=== PATIENT | male | born 1945 | race Hispanic/Latino ===

== ENCOUNTER → 2017-11-14 | Outpatient (CLI) | payer MEDICARE ==
--- NOTE | 2017-11-15 08:30 | Diagnostic Imaging Report ---
Exam: Lumbar spine MRI without IV contrast History: Lumbar radiculopathy and spinal canal stenosis. Pain radiates to right hip and foot Comparison studies: Lumbar spine MRI 12/11/2012 Technique: Sagittal and axial T2 , sagittal T1 and IR, axial spin density oblique. Intravenous contrast: None Findings: Number of lumbar vertebral bodies: 5. Alignment: Straight lumbar curvature with focal dextro curvature centered at L4 with mild right lateral translation of L4 and L5. Soft tissues: No T2 hyperintense inflammatory changes. Paraspinal muscles: No signal abnormalities. Well-preserved. No atrophic changes Lower thoracic cord: Normal in signal and morphology. The tip of the conus is at L1-L2. Cauda equina: No masses. No arachnoiditis. Cauda equina nerve root redundancy related to severe degenerative canal stenosis at L3-L4 as described below. Vertebrae: No compression fractures, infection or neoplasm. Moderate reactive degenerative edema at the right L4-L5 endplates due to curvature. Severe degenerative endplate changes on the left at L3-L4 due to curvature with only minimal endplate edema which has improved since the previous exam. Degenerative changes: Loss of T2 disc signal at all levels T9 through L5. L1-L2: Mild loss of disc height. Disc bulge asymmetric to the right with mild bilateral foraminal stenosis. No significant canal stenosis L2-L3: Mild loss of disc height. Minimal retrolisthesis of L2 on L3 with associated uncovered disc/disc bulge and mild facet arthrosis with mild canal stenosis, severe left foraminal stenosis mild to moderate foraminal stenosis. L3-L4: Moderate loss of disc height, greater on the left due to curvature. Disc osteophyte complex, thickened ligamentum flavum and mild facet arthrosis with severe canal stenosis, severe left foraminal stenosis and moderate right foraminal stenosis. L4-L5: Disc bulge asymmetric to the right, central disc extrusion which extends to the right subarticular zone, thickened ligamentum flavum and facet arthrosis with moderate canal stenosis, severe right and moderate left foraminal stenosis. Disc extrusion which has which is with slight inferior migration along the right subarticular ventral epidural space compresses the right L5 nerve root. There is L5-S1: Mild facet arthrosis with mild bilateral foraminal stenosis. No significant canal stenosis. IMPRESSION: 1. Degenerative changes have progressed since 12/11/2012. 2. Multilevel disc degeneration, worse at L3-L4 and at L4-L5 with associated moderate degenerative endplate changes and moderate endplate edema on the right at L4-L5 due to dextrocurvature centered at L4. 3. Degenerative canal stenosis; severe at L3-L4, moderate L4-L5 and mild at L2-L3. Canal stenosis at L3-L4 and at L4-L5 have progressed since 2013 4. New L4-L5 disc extrusion compresses the right L5 nerve root. 5. Not significantly change varying degrees of moderate to severe foraminal stenosis from L2 to L5. Signed by: Dr. Jaun Lott M.D. on 11/15/2017 8:27 AM
== END ==
LOC: MRI 13:28
PROVIDERS: ATTEND Psychiatry & Neurology Neurology
DX: M54.16 Radiculopathy, lumbar region (principal); M48.062 Spinal stenosis, lumbar region with neurogenic claudication; M47.816 Spondylosis without myelopathy or radiculopathy, lumbar region
CPT/HCPCS: 72148

== ENCOUNTER → 2020-09-01 | Day surgery (SDC) | payer MEDICARE ==
[2020-08-30 10:21] LABS: BASOPHILS % 0.3 % (0.0-1.0); HEMATOCRIT 45.5 % (38.2-49.6); HEMOGLOBIN 15.2 g/dL (14.0-18.0); LYMPHOCYTES # (AUTO) 0.8 (1.0-3.2); LYMPHOCYTES % 11.1 % (18.0-39.1); MEAN CORPUSCULAR HEMOGLOBIN 29.3 pg (28-32); MEAN CORPUSCULAR HGB CONC 33.4 g/dL (31-35); MEAN CORPUSCULAR VOLUME 87.7 fL (81-99); MONOCYTES # (AUTO) 0.5 (0.2-0.8); MONOCYTES % 7.8 % (4.4-11.3); NEUTROPHILS # (AUTO) 5.6 (2.1-6.9); NEUTROPHILS % 80.4 % (38.7-80.0); PLATELET COUNT 233 x10e3/uL (140-360); RED BLOOD COUNT 5.19 x10e6/uL (4.3-5.7)
[2020-08-30 10:46] LABS: ANION GAP 14.2 mmol/L (8-16); BLOOD UREA NITROGEN 12 mg/dL (7-26); BUN/CREATININE RATIO 15 (6-25); CALCIUM 8.8 mg/dL (8.4-10.2); CARBON DIOXIDE 27 mmol/L (22-29); CHLORIDE 101 mmol/L (98-107); CREATININE, SERUM 0.78 mg/dL (0.72-1.25); EST GLOMERULAR FILTRATION RATE > 60 ML/MIN (60-); GLUCOSE 91 mg/dL (74-118); POTASSIUM 4.2 mmol/L (3.5-5.1); SODIUM 138 mmol/L (136-145)
[~2020-09-01] MED LIST: AZILECT1 MG PO; BUPIVACAINE 0.25%/EPI 30ML SDV INJ ONE; CARBIDOPA-LEVO1 EAC4 PO; COMTAN200 MG PO; CYMBALTA30 MG PO; DEXAMETHASONE SOD PHOS INJ 4 MG/ML VIAL ONE; EPHEDRINE SULFATE INJ 50 MG/ML VIAL ONE; FENTANYL CITRATE/PF 100MCG/2 ML INJ ONE; GLYCOPYRROLATE INJ 0.2 MG/ML VIAL ONE; LIDOCAINE HCL 2% JELLY 5 ML TUBE ONE; LIDOCAINE HCL 2% LOCAL INJ 5 ML SDV VIAL INJ ONE; NEOSTIGMINE 1 MG/ML 10ML VIAL ONE; ONDANSETRON HCL INJ 2MG/ML 2ML 2 MG/ML VIAL ONE; PROPOFOL IV EMULSION 10 MG/ML 20 ML VIAL ONE; ROCURONIUM BROMIDE 10 MG/ML 5ML VIAL IV ONE; ROPINIROLE HC0.25 MG PO; SEVOFLURANE INHAL SOLN 250 ML PEN BTL ONE
[2020-09-01 13:25] VITALS: BP 163/97
== END | disposition home or self-care (01) ==
LOC: OR 10:00
PROVIDERS: ATTEND Surgery
DX: K43.6 Other and unspecified ventral hernia with obstruction, without gangrene (principal); G20 Parkinson's disease; Z01.810 Encounter for preprocedural cardiovascular examination; Z01.812 Encounter for preprocedural laboratory examination; Z01.818 Encounter for other preprocedural examination; Z20.828 Contact with and (suspected) exposure to other viral communicable diseases
CPT/HCPCS: 36415; 49561; 49568; 71046; 80048; 85025; 88302; 93005; C1781; J1100; J2001 ×2; J2405; J2704; J2710; U0002

== ENCOUNTER 2020-10-31 19:21 | Inpatient (IN) | payer MEDICARE ==
[~2020-10-31] VITALS: Ht 180.3 cm; Wt 88.0 kg
[~2020-10-31 19:21] MED LIST changes: -BUPIVACAINE 0.25%/EPI 30ML SDV INJ ONE; -DEXAMETHASONE SOD PHOS INJ 4 MG/ML VIAL ONE; -EPHEDRINE SULFATE INJ 50 MG/ML VIAL ONE; -FENTANYL CITRATE/PF 100MCG/2 ML INJ ONE; -GLYCOPYRROLATE INJ 0.2 MG/ML VIAL ONE; -LIDOCAINE HCL 2% JELLY 5 ML TUBE ONE; -LIDOCAINE HCL 2% LOCAL INJ 5 ML SDV VIAL INJ ONE; -NEOSTIGMINE 1 MG/ML 10ML VIAL ONE; -ONDANSETRON HCL INJ 2MG/ML 2ML 2 MG/ML VIAL ONE; -PROPOFOL IV EMULSION 10 MG/ML 20 ML VIAL ONE; -ROCURONIUM BROMIDE 10 MG/ML 5ML VIAL IV ONE; -SEVOFLURANE INHAL SOLN 250 ML PEN BTL ONE
[2020-10-31 20:54] LABS: BASOPHILS % 0.5 % (0.0-1.0); EOSINOPHILS # (AUTO) 0.1 (0.0-0.4); EOSINOPHILS % 1.1 % (0.0-6.0); HEMATOCRIT 35.9 % (38.2-49.6); HEMOGLOBIN 11.5 g/dL (14.0-18.0); LYMPHOCYTES % 17.5 % (18.0-39.1); MEAN CORPUSCULAR HEMOGLOBIN 28.5 pg (28-32); MEAN CORPUSCULAR VOLUME 89.1 fL (81-99); MONOCYTES # (AUTO) 0.6 (0.2-0.8); MONOCYTES % 10.4 % (4.4-11.3); NEUTROPHILS # (AUTO) 3.8 (2.1-6.9); NEUTROPHILS % 70.1 % (38.7-80.0); PLATELET COUNT 212 x10e3/uL (140-360); RED BLOOD COUNT 4.03 x10e6/uL (4.3-5.7); RED CELL DISTRIBUTION WIDTH 13.9 % (11.7-14.4)
[2020-10-31 21:00] LABS: INR 0.91; PROTHROMBIN TIME 12.8 seconds (11.9-14.5)
[2020-10-31 21:01] LABS: PARTIAL THROMBOPLASTIN TIME 39.8 seconds (23.8-35.5)
[2020-10-31 21:10] LABS: ALBUMIN 3.7 g/dL (3.5-5.0); ALBUMIN/GLOBULIN RATIO 1.2 (0.8-2.0); ANION GAP 14.2 mmol/L (8-16); CALCIUM 8.8 mg/dL (8.4-10.2); CREATININE, SERUM 1.21 mg/dL (0.72-1.25); POTASSIUM 4.2 mmol/L (3.5-5.1)
[2020-10-31 23:28] LABS: CLARITY,URINE CLEAR (CLEAR); COLOR,URINE YELLOW (YELLOW); KETONES,URINE NEGATIVE (NEGATIVE); LEUKOCYTE ESTERASE ,URINE SMALL (NEGATIVE); NITRITE,URINE NEGATIVE (NEGATIVE); PROTEIN,URINE DIPSTICK NEGATIVE (NEGATIVE); URINE UROBILINOGEN 0.2 mg/dL (0.2 - 1)
[2020-10-31 23:37] LABS: BACTERIA,URINE FEW /HPF; EPITHELIAL CELLS,URINE FEW /LPF; RBC,URINE 0-5 /HPF (0-5)
[2020-11-01] VITALS (9 sets, daily range): BP systolic 136–181; BP diastolic 77–100
[2020-11-01] MEDS ORDERED: HALOPERIDOL LACTATE 5 MG/ML VIAL IM ONE ×2 (00:15)
[2020-11-01] MEDS ORDERED: FUROSEMIDE20 MG PO (02:11)
[2020-11-01] MEDS ORDERED: K-DUR10 MEQ PO (02:11)
[2020-11-01] MEDS ORDERED: ROPINIROLE HCL12 MG PO (02:11)
[2020-11-01] MEDS ORDERED: LOSARTAN POTASS50 MG PO (02:11)
[2020-11-01 05:58] LABS: BASOPHILS % 0.5 % (0.0-1.0); EOSINOPHILS % 0.7 % (0.0-6.0); HEMATOCRIT 33.3 % (38.2-49.6); LYMPHOCYTES # (AUTO) 1.6 (1.0-3.2); LYMPHOCYTES % 26.1 % (18.0-39.1); MEAN CORPUSCULAR HEMOGLOBIN 29.6 pg (28-32); MEAN CORPUSCULAR VOLUME 89.8 fL (81-99); MONOCYTES # (AUTO) 0.7 (0.2-0.8); MONOCYTES % 10.9 % (4.4-11.3); NEUTROPHILS # (AUTO) 3.7 (2.1-6.9); NEUTROPHILS % 61.5 % (38.7-80.0); PLATELET COUNT 186 x10e3/uL (140-360); RED BLOOD COUNT 3.71 x10e6/uL (4.3-5.7); RED CELL DISTRIBUTION WIDTH 13.8 % (11.7-14.4)
[2020-11-01] MEDS ORDERED: HALOPERIDOL LACTATE 5 MG/ML VIAL IV PRN ×2 (06:15→14:30)
[2020-11-01 06:30] LABS: ALBUMIN 3.4 g/dL (3.5-5.0); ALBUMIN/GLOBULIN RATIO 1.1 (0.8-2.0); ALKALINE PHOSPHATASE 101 IU/L (40-150); ANION GAP 13.7 mmol/L (8-16); BLOOD UREA NITROGEN 21 mg/dL (7-26); BUN/CREATININE RATIO 18 (6-25); CALCIUM 8.7 mg/dL (8.4-10.2); CARBON DIOXIDE 27 mmol/L (22-29); CHLORIDE 111 mmol/L (98-107); CREATININE, SERUM 1.17 mg/dL (0.72-1.25); EST GLOMERULAR FILTRATION RATE > 60 ML/MIN (60-); GLUCOSE 89 mg/dL (74-118); POTASSIUM 3.7 mmol/L (3.5-5.1); SODIUM 148 mmol/L (136-145)
[2020-11-01 06:32] LABS: ALANINE AMINOTRANSFERASE < 6 IU/L (0-55)
[2020-11-01] MEDS ORDERED: SODIUM CHLORIDE 0.9% 50ML 50 ML ONE (08:25)
[2020-11-01] MEDS ORDERED: IOPAMIDOL 370 MG/ML 200 ML INFUS..BTL INJ ONE (08:25)
[2020-11-01] MEDS ORDERED: HYDRALAZINE HCL 20 MG/ML VIAL IV PRN (14:45)
[2020-11-01] MEDS: DULOXETINE HCL 30 MG DELAYED RELEASE PO SCH (17:49)
[2020-11-01] MEDS ORDERED: NON-FORMULARY MEDICATION (Entacapone (Comtan) 200 MG) PO SCH (18:00)
[2020-11-01] MEDS: CARBIDOPA/LEVODOPA 25/100 TAB PO SCH (20:38)
[2020-11-01] MEDS: TAMSULOSIN HCL 0.4 MG CAP PO SCH (20:38)
[2020-11-01] MEDS: ROPINIROLE HCL 0.25 MG TAB PO SCH (20:38)
[2020-11-01] MEDS ORDERED: ROPINIROLE HCL 12 MG PO SCH (21:00)
[2020-11-02] VITALS (8 sets, daily range): BP systolic 143–169; BP diastolic 72–94
[2020-11-02 03:42] LABS: CLARITY,URINE TURBID (CLEAR); COLOR,URINE RED (YELLOW); KETONES,URINE NEGATIVE (NEGATIVE); LEUKOCYTE ESTERASE ,URINE NEGATIVE (NEGATIVE); NITRITE,URINE NEGATIVE (NEGATIVE); PROTEIN,URINE DIPSTICK >=300 (NEGATIVE); URINE UROBILINOGEN 0.2 mg/dL (0.2 - 1)
[2020-11-02 03:50] LABS: BACTERIA,URINE FEW /HPF; EPITHELIAL CELLS,URINE FEW /LPF; RBC,URINE >50 /HPF (0-5)
[2020-11-02] MEDS: SODIUM CHLORIDE 0.45% 1,000 ML IV SCH ×3 (03:59→16:10)
[2020-11-02 06:28] LABS: ALBUMIN 3.3 g/dL (3.5-5.0); ALBUMIN/GLOBULIN RATIO 1.1 (0.8-2.0); ALKALINE PHOSPHATASE 109 IU/L (40-150); ANION GAP 16.4 mmol/L (8-16); BLOOD UREA NITROGEN 24 mg/dL (7-26); BUN/CREATININE RATIO 17 (6-25); CALCIUM 8.9 mg/dL (8.4-10.2); CARBON DIOXIDE 27 mmol/L (22-29); CHLORIDE 117 mmol/L (98-107); CREATININE, SERUM 1.45 mg/dL (0.72-1.25); EST GLOMERULAR FILTRATION RATE 47 ML/MIN (60-); GLUCOSE 97 mg/dL (74-118); MAGNESIUM 2.2 MG/DL (1.3-2.1); POTASSIUM 3.4 mmol/L (3.5-5.1); SODIUM 157 mmol/L (136-145)
[2020-11-02 06:51] LABS: ALANINE AMINOTRANSFERASE < 6 IU/L (0-55)
[2020-11-02] MEDS: RASAGILINE 1 MG TAB PO SCH (08:04)
[2020-11-02] MEDS: ROPINIROLE HCL 0.25 MG TAB PO SCH ×3 (08:04→20:17)
[2020-11-02] MEDS: DULOXETINE HCL 30 MG DELAYED RELEASE PO SCH ×2 (08:04→16:10)
[2020-11-02] MEDS: CARBIDOPA/LEVODOPA 25/100 TAB PO SCH ×3 (08:04→20:17)
[2020-11-02] MEDS: HOME MEDICATION--PATIENTS OWN PO SCH ×3 (08:49→20:17)
[2020-11-02] MEDS ORDERED: CEFTRIAXONE SOD 1 GM 50 ML IV SCH (13:30)
[2020-11-02] MEDS ORDERED: POTASSIUM CHLORIDE 20 MEQ TAB CR PO ONE (15:00)
[2020-11-02] MEDS: CEFTRIAXONE SOD 1 GM in SODIUM CHLORIDE 0.9% 50ML 50 ML IV SCH (15:25)
[2020-11-02] MEDS: TAMSULOSIN HCL 0.4 MG CAP PO SCH (20:16)
[2020-11-02] MEDS: QUETIAPINE FUMARATE 25 MG TAB PO PRN (20:17)
[2020-11-03] VITALS (8 sets, daily range): BP systolic 144–165; BP diastolic 60–91
[2020-11-03] MEDS: SODIUM CHLORIDE 0.45% 1,000 ML IV SCH ×3 (01:20→16:52)
[2020-11-03 06:04] LABS: BASOPHILS % 0.5 % (0.0-1.0); EOSINOPHILS # (AUTO) 0.3 (0.0-0.4); HEMATOCRIT 36.7 % (38.2-49.6); HEMOGLOBIN 11.6 g/dL (14.0-18.0); LYMPHOCYTES # (AUTO) 1.3 (1.0-3.2); LYMPHOCYTES % 20.2 % (18.0-39.1); MEAN CORPUSCULAR HEMOGLOBIN 28.6 pg (28-32); MEAN CORPUSCULAR HGB CONC 31.6 g/dL (31-35); MEAN CORPUSCULAR VOLUME 90.4 fL (81-99); MONOCYTES # (AUTO) 0.8 (0.2-0.8); MONOCYTES % 12.3 % (4.4-11.3); NEUTROPHILS % 62.7 % (38.7-80.0); PLATELET COUNT 164 x10e3/uL (140-360); RED BLOOD COUNT 4.06 x10e6/uL (4.3-5.7); RED CELL DISTRIBUTION WIDTH 13.6 % (11.7-14.4)
[2020-11-03 06:38] LABS: ANION GAP 14.3 mmol/L (8-16); CALCIUM 8.2 mg/dL (8.4-10.2); CREATININE, SERUM 1.18 mg/dL (0.72-1.25); MAGNESIUM 1.6 MG/DL (1.3-2.1); POTASSIUM 3.3 mmol/L (3.5-5.1)
[2020-11-03] MEDS: ROPINIROLE HCL 0.25 MG TAB PO SCH ×3 (08:44→21:47)
[2020-11-03] MEDS: RASAGILINE 1 MG TAB PO SCH (08:44)
[2020-11-03] MEDS: DULOXETINE HCL 30 MG DELAYED RELEASE PO SCH ×2 (08:44→16:13)
[2020-11-03] MEDS: CARBIDOPA/LEVODOPA 25/100 TAB PO SCH ×3 (08:45→21:47)
[2020-11-03] MEDS: HOME MEDICATION--PATIENTS OWN PO SCH ×3 (08:47→21:00)
[2020-11-03] MEDS: QUETIAPINE FUMARATE 25 MG TAB PO PRN (08:51)
[2020-11-03] MEDS: CEFTRIAXONE SOD 1 GM in SODIUM CHLORIDE 0.9% 50ML 50 ML IV SCH (14:03)
[2020-11-03] MEDS ORDERED: POTASSIUM CHLORIDE 20 MEQ TAB CR PO ONE (15:25)
[2020-11-03] MEDS: QUETIAPINE FUMARATE 25 MG TAB PO SCH (21:47)
[2020-11-03] MEDS: TAMSULOSIN HCL 0.4 MG CAP PO SCH (21:47)
[2020-11-04] VITALS (8 sets, daily range): BP systolic 116–165; BP diastolic 68–97
[2020-11-04] MEDS: SODIUM CHLORIDE 0.45% 1,000 ML IV SCH ×3 (04:07→23:06)
[2020-11-04 05:09] LABS: BASOPHILS % 0.4 % (0.0-1.0); EOSINOPHILS # (AUTO) 0.4 (0.0-0.4); EOSINOPHILS % 5.3 % (0.0-6.0); HEMATOCRIT 36.7 % (38.2-49.6); HEMOGLOBIN 11.9 g/dL (14.0-18.0); LYMPHOCYTES # (AUTO) 1.4 (1.0-3.2); LYMPHOCYTES % 19.1 % (18.0-39.1); MEAN CORPUSCULAR HEMOGLOBIN 28.7 pg (28-32); MEAN CORPUSCULAR HGB CONC 32.4 g/dL (31-35); MEAN CORPUSCULAR VOLUME 88.6 fL (81-99); MONOCYTES # (AUTO) 0.7 (0.2-0.8); MONOCYTES % 10.1 % (4.4-11.3); NEUTROPHILS # (AUTO) 4.8 (2.1-6.9); NEUTROPHILS % 64.8 % (38.7-80.0); PLATELET COUNT 185 x10e3/uL (140-360); RED BLOOD COUNT 4.14 x10e6/uL (4.3-5.7); RED CELL DISTRIBUTION WIDTH 13.4 % (11.7-14.4)
[2020-11-04] MEDS: QUETIAPINE FUMARATE 25 MG TAB PO PRN ×2 (05:15→12:22)
[2020-11-04 05:29] LABS: ANION GAP 14.7 mmol/L (8-16); BLOOD UREA NITROGEN 17 mg/dL (7-26); BUN/CREATININE RATIO 16 (6-25); CALCIUM 8.1 mg/dL (8.4-10.2); CARBON DIOXIDE 27 mmol/L (22-29); CHLORIDE 108 mmol/L (98-107); CREATININE, SERUM 1.08 mg/dL (0.72-1.25); EST GLOMERULAR FILTRATION RATE > 60 ML/MIN (60-); GLUCOSE 101 mg/dL (74-118); MAGNESIUM 1.4 MG/DL (1.3-2.1); POTASSIUM 3.7 mmol/L (3.5-5.1); SODIUM 146 mmol/L (136-145)
[2020-11-04] MEDS: DULOXETINE HCL 30 MG DELAYED RELEASE PO SCH ×2 (09:12→17:24)
[2020-11-04] MEDS: RASAGILINE 1 MG TAB PO SCH (09:12)
[2020-11-04] MEDS: ROPINIROLE HCL 0.25 MG TAB PO SCH ×3 (09:12→20:02)
[2020-11-04] MEDS: HOME MEDICATION--PATIENTS OWN PO SCH ×3 (09:12→20:02)
[2020-11-04] MEDS: CARBIDOPA/LEVODOPA 25/100 TAB PO SCH ×3 (09:12→20:02)
[2020-11-04] MEDS: CEFTRIAXONE SOD 1 GM in SODIUM CHLORIDE 0.9% 50ML 50 ML IV SCH (14:06)
[2020-11-04] MEDS: QUETIAPINE FUMARATE 25 MG TAB PO SCH (20:02)
[2020-11-04] MEDS: TAMSULOSIN HCL 0.4 MG CAP PO SCH (20:02)
[2020-11-05] VITALS (8 sets, daily range): BP systolic 106–146; BP diastolic 59–81
[2020-11-05] MEDS: QUETIAPINE FUMARATE 25 MG TAB PO PRN ×2 (03:54→12:29)
[2020-11-05] MEDS: RASAGILINE 1 MG TAB PO SCH (09:03)
[2020-11-05] MEDS: ROPINIROLE HCL 0.25 MG TAB PO SCH ×3 (09:04→20:20)
[2020-11-05] MEDS: SODIUM CHLORIDE 0.45% 1,000 ML IV SCH ×2 (09:04→20:20)
[2020-11-05] MEDS: CARBIDOPA/LEVODOPA 25/100 TAB PO SCH ×3 (09:04→20:20)
[2020-11-05] MEDS: DULOXETINE HCL 30 MG DELAYED RELEASE PO SCH ×2 (09:04→17:24)
[2020-11-05] MEDS: HOME MEDICATION--PATIENTS OWN PO SCH ×3 (09:04→20:20)
[2020-11-05] MEDS: CEFTRIAXONE SOD 1 GM in SODIUM CHLORIDE 0.9% 50ML 50 ML IV SCH (14:02)
[2020-11-05] MEDS: QUETIAPINE FUMARATE 25 MG TAB PO SCH (20:20)
[2020-11-05] MEDS: TAMSULOSIN HCL 0.4 MG CAP PO SCH (20:20)
[2020-11-06] VITALS (8 sets, daily range): BP systolic 102–133; BP diastolic 54–85
[2020-11-06] MEDS: QUETIAPINE FUMARATE 25 MG TAB PO PRN (02:44)
[2020-11-06] MEDS: SODIUM CHLORIDE 0.45% 1,000 ML IV SCH ×2 (05:13→17:20)
[2020-11-06] MEDS: HOME MEDICATION--PATIENTS OWN PO SCH ×3 (09:00→21:29)
[2020-11-06] MEDS: DULOXETINE HCL 30 MG DELAYED RELEASE PO SCH ×2 (09:27→17:20)
[2020-11-06] MEDS: ROPINIROLE HCL 0.25 MG TAB PO SCH ×3 (09:27→21:29)
[2020-11-06] MEDS: CARBIDOPA/LEVODOPA 25/100 TAB PO SCH ×3 (09:27→21:29)
[2020-11-06] MEDS: RASAGILINE 1 MG TAB PO SCH (09:27)
[2020-11-06] MEDS: CEFTRIAXONE SOD 1 GM in SODIUM CHLORIDE 0.9% 50ML 50 ML IV SCH (14:00)
[2020-11-06] MEDS: QUETIAPINE FUMARATE 25 MG TAB PO SCH (21:29)
[2020-11-06] MEDS: TAMSULOSIN HCL 0.4 MG CAP PO SCH (21:29)
[2020-11-07] VITALS: BP 161/77
[2020-11-07] MEDS: SODIUM CHLORIDE 0.45% 1,000 ML IV SCH (01:58)
[2020-11-07] MEDS: QUETIAPINE FUMARATE 25 MG TAB PO PRN (03:31)
[2020-11-07 04:00] VITALS: BP 119/64
[2020-11-07 08:15] VITALS: BP 114/88
[2020-11-07 08:43] VITALS: BP 114/88
[2020-11-07] MEDS: DULOXETINE HCL 30 MG DELAYED RELEASE PO SCH (09:12)
[2020-11-07] MEDS: RASAGILINE 1 MG TAB PO SCH (09:12)
[2020-11-07] MEDS: ROPINIROLE HCL 0.25 MG TAB PO SCH (09:13)
[2020-11-07] MEDS: CARBIDOPA/LEVODOPA 25/100 TAB PO SCH (09:13)
[2020-11-07 12:27] VITALS: BP 122/98
== END 2020-11-07 13:53 | disposition left against medical advice (07) | DRG 682 ==
LOC: ER 20:25 → ERHOLD 20:49 → MED/SURG2 11-01 00:05
PROVIDERS: ADMIT Internal Medicine; ATTEND Internal Medicine
DX: N17.9 Acute kidney failure, unspecified (principal); G93.41 Metabolic encephalopathy; F02.81 Dementia in other diseases classified elsewhere, unspecified severity, with behavioral disturbance; E87.1 Hypo-osmolality and hyponatremia; G20 Parkinson's disease; R53.81 Other malaise; N13.9 Obstructive and reflux uropathy, unspecified; N40.1 Benign prostatic hyperplasia with lower urinary tract symptoms; R33.8 Other retention of urine; E87.6 Hypokalemia; N13.6 Pyonephrosis; D64.9 Anemia, unspecified; N31.9 Neuromuscular dysfunction of bladder, unspecified
CPT/HCPCS: 36415; 51700; 70551; 71045; 74177; 80048; 80053; 81001; 82550; 82553; 83735; 83880; 84484; 85025; 85610; 85730; 87086; 99251; 99284; J0696; Q9967; U0002

== ENCOUNTER 2020-11-24 15:35 | Inpatient (IN) | payer MEDICARE ==
[~2020-11-24] VITALS: Ht 160 cm; Wt 60.1 kg
[~2020-11-24 15:35] MED LIST changes: +FUROSEMIDE20 MG PO; +K-DUR10 MEQ PO; +LOSARTAN POTASS50 MG PO; +ROPINIROLE HCL12 MG PO
[2020-11-24] MEDS ORDERED: SODIUM CHLORIDE 0.9% 1000ML 1,000 ML IV STA (15:44)
[2020-11-24] MEDS ORDERED: ASPIRIN 81 MG CHEW TAB PO ONE (15:45)
[2020-11-24] MEDS ORDERED: PIPERACILLIN/TAZOBAC 3.375 GM in SODIUM CHLORIDE 0.9% 50ML 50 ML IV ONE (16:00)
[2020-11-24 16:09] LABS: BASOPHILS # (AUTO) 0.2 (0.0-0.1); BASOPHILS % 0.4 % (0.0-1.0); EOSINOPHILS % 0.1 % (0.0-6.0); HEMATOCRIT 29.8 % (38.2-49.6); LYMPHOCYTES # (AUTO) 0.8 (1.0-3.2); LYMPHOCYTES % 2.2 % (18.0-39.1); MEAN CORPUSCULAR HEMOGLOBIN 28.9 pg (28-32); MEAN CORPUSCULAR HGB CONC 33.6 g/dL (31-35); MEAN CORPUSCULAR VOLUME 86.1 fL (81-99); MONOCYTES # (AUTO) 2.4 (0.2-0.8); MONOCYTES % 6.6 % (4.4-11.3); NEUTROPHILS # (AUTO) 31.4 (2.1-6.9); NEUTROPHILS % 86.7 % (38.7-80.0); PLATELET COUNT 364 x10e3/uL (140-360); RED BLOOD COUNT 3.46 x10e6/uL (4.3-5.7); RED CELL DISTRIBUTION WIDTH 13.7 % (11.7-14.4)
[2020-11-24 16:13] LABS: CLARITY,URINE CLOUDY (CLEAR); COLOR,URINE YELLOW (YELLOW); LEUKOCYTE ESTERASE ,URINE LARGE (NEGATIVE); NITRITE,URINE NEGATIVE (NEGATIVE)
[2020-11-24 16:14] LABS: KETONES,URINE NEGATIVE (NEGATIVE); PROTEIN,URINE DIPSTICK 2+ (NEGATIVE); URINE UROBILINOGEN 0.2 mg/dL (0.2 - 1)
[2020-11-24 16:24] LABS: BACTERIA,URINE FEW /HPF; RBC,URINE 21-50 /HPF (0-5); WBC,URINE (MAN) >50 /HPF (0-5)
[2020-11-24 16:25] LABS: ALBUMIN 2.6 g/dL (3.5-5.0); ALBUMIN/GLOBULIN RATIO 0.7 (0.8-2.0); ANION GAP 17.7 mmol/L (8-16); CALCIUM 8.4 mg/dL (8.4-10.2); CREATININE, SERUM 2.2 mg/dL (0.72-1.25); POTASSIUM 4.7 mmol/L (3.5-5.1)
[2020-11-24 16:33] LABS: CREATINE KINASE MB 0.2 ng/mL (0-5.0)
[2020-11-24 19:15] VITALS: BP 105/61
[2020-11-24] MEDS ORDERED: FUROSEMIDE 20 MG TAB PO PRN (19:30)
[2020-11-24] MEDS ORDERED: ONDANSETRON HCL INJ 2MG/ML 2ML 2 MG/ML VIAL IV PRN (19:45)
[2020-11-24] MEDS ORDERED: ACETAMINOPHEN 325 MG TAB PO PRN (19:45)
[2020-11-24] MEDS ORDERED: FLOMAX0.4 MG PO (20:45)
[2020-11-24 20:55] LABS: BAND NEUTROPHILS % (MANUAL) 8 %; LYMPHOCYTES % (MANUAL) 2 % (19-48); METAMYELOCYTES % (MANUAL) 4 % (0-0); MONOCYTES % (MANUAL) 6 % (3.4-9.0); MYELOCYTES % (MANUAL) 1 % (0-0); NEUTROPHILS % (MANUAL) 79 % (40-74)
[2020-11-24 20:58] LABS: HYPOCHROMASIA SLIGHT; PLATELET ESTIMATE ADEQUATE
[2020-11-24 20:59] LABS: PLATELET MORPHOLOGY COMMENT NORMAL; POIKILOCYTOSIS SLIGHT
[2020-11-24 21:00] VITALS: BP 105/61
[2020-11-24] MEDS: ROPINIROLE HCL 12 MG PO SCH (21:00)
[2020-11-24] MEDS: NON-FORMULARY MEDICATION (Entacapone (Comtan) 200 MG) PO SCH (21:00)
[2020-11-24] MEDS: MEROPENEM 500MG/ NS 50ML 50 ML IV SCH (21:00)
[2020-11-24] MEDS: SODIUM CHLORIDE 0.9% 1000ML 1,000 ML IV SCH (21:00)
[2020-11-25] VITALS (8 sets, daily range): BP systolic 90–128; BP diastolic 58–79
[2020-11-25] MEDS: NON-FORMULARY MEDICATION (Entacapone (Comtan) 200 MG) PO SCH ×5 (00:48→20:23)
[2020-11-25] MEDS: ROPINIROLE HCL 12 MG PO SCH ×2 (00:48→20:23)
[2020-11-25] MEDS: MEROPENEM 500MG/ NS 50ML 50 ML IV SCH ×3 (04:10→20:00)
[2020-11-25] MEDS: SODIUM CHLORIDE 0.9% 1000ML 1,000 ML IV SCH ×2 (05:39→21:00)
[2020-11-25 05:54] LABS: HEMATOCRIT 27.9 % (38.2-49.6); HEMOGLOBIN 9.3 g/dL (14.0-18.0); LYMPHOCYTES # (AUTO) 0.6 (1.0-3.2); LYMPHOCYTES % 1.4 % (18.0-39.1); MEAN CORPUSCULAR HEMOGLOBIN 29.2 pg (28-32); MEAN CORPUSCULAR HGB CONC 33.3 g/dL (31-35); MEAN CORPUSCULAR VOLUME 87.5 fL (81-99); NEUTROPHILS # (AUTO) 35.3 (2.1-6.9); NEUTROPHILS % 88.3 % (38.7-80.0); PLATELET COUNT 325 x10e3/uL (140-360); RED BLOOD COUNT 3.19 x10e6/uL (4.3-5.7); RED CELL DISTRIBUTION WIDTH 13.8 % (11.7-14.4)
[2020-11-25 06:10] LABS: ALBUMIN 2.2 g/dL (3.5-5.0); ALBUMIN/GLOBULIN RATIO 0.6 (0.8-2.0); ANION GAP 17.3 mmol/L (8-16); CALCIUM 7.8 mg/dL (8.4-10.2); MAGNESIUM 1.6 MG/DL (1.3-2.1); PHOSPHORUS 4.9 MG/DL (2.3-4.7); POTASSIUM 4.3 mmol/L (3.5-5.1)
[2020-11-25 06:33] LABS: THYROID STIMULATING HORMONE 0.43 uIU/mL (0.350-4.940)
[2020-11-25] MEDS: DULOXETINE HCL 30 MG DELAYED RELEASE PO SCH ×2 (09:15→17:43)
[2020-11-25] MEDS: RASAGILINE 1 MG TAB PO SCH (09:18)
[2020-11-25 09:20] LABS: BAND NEUTROPHILS % (MANUAL) 6 %; LYMPHOCYTES % (MANUAL) 2 % (19-48); MONOCYTES % (MANUAL) 6 % (3.4-9.0); NEUTROPHILS % (MANUAL) 86 % (40-74)
[2020-11-25] MEDS ORDERED: SODIUM CHLORIDE 0.9% 50ML 50 ML ONE (20:12)
[2020-11-26] VITALS (7 sets, daily range): BP systolic 121–164; BP diastolic 70–91
[2020-11-26] MEDS: SODIUM CHLORIDE 0.9% 1000ML 1,000 ML IV SCH ×3 (01:45→12:18)
[2020-11-26] MEDS: MEROPENEM 500MG/ NS 50ML 50 ML IV SCH ×3 (04:00→20:30)
[2020-11-26 06:10] LABS: EOSINOPHILS % 0.1 % (0.0-6.0); HEMATOCRIT 30.1 % (38.2-49.6); HEMOGLOBIN 9.7 g/dL (14.0-18.0); LYMPHOCYTES # (AUTO) 0.7 (1.0-3.2); LYMPHOCYTES % 2.3 % (18.0-39.1); MEAN CORPUSCULAR HEMOGLOBIN 28.4 pg (28-32); MEAN CORPUSCULAR HGB CONC 32.2 g/dL (31-35); MEAN CORPUSCULAR VOLUME 88.3 fL (81-99); MONOCYTES # (AUTO) 1.5 (0.2-0.8); MONOCYTES % 4.8 % (4.4-11.3); NEUTROPHILS # (AUTO) 28.5 (2.1-6.9); NEUTROPHILS % 90.6 % (38.7-80.0); PLATELET COUNT 296 x10e3/uL (140-360); RED BLOOD COUNT 3.41 x10e6/uL (4.3-5.7); RED CELL DISTRIBUTION WIDTH 14.1 % (11.7-14.4)
[2020-11-26 06:28] LABS: ANION GAP 13.4 mmol/L (8-16); CALCIUM 8.2 mg/dL (8.4-10.2); CREATININE, SERUM 1.51 mg/dL (0.72-1.25); POTASSIUM 4.4 mmol/L (3.5-5.1)
[2020-11-26] MEDS: DULOXETINE HCL 30 MG DELAYED RELEASE PO SCH ×2 (09:10→16:48)
[2020-11-26] MEDS: NON-FORMULARY MEDICATION (Entacapone (Comtan) 200 MG) PO SCH ×4 (09:10→20:30)
[2020-11-26] MEDS: RASAGILINE 1 MG TAB PO SCH (09:10)
[2020-11-26] MEDS: ROPINIROLE HCL 12 MG PO SCH (20:30)
[2020-11-27] VITALS (8 sets, daily range): BP systolic 137–180; BP diastolic 78–98
[2020-11-27] MEDS: MEROPENEM 500MG/ NS 50ML 50 ML IV SCH ×3 (04:00→20:12)
[2020-11-27 06:22] LABS: BASOPHILS # (AUTO) 0.1 (0.0-0.1); BASOPHILS % 0.3 % (0.0-1.0); EOSINOPHILS # (AUTO) 0.1 (0.0-0.4); EOSINOPHILS % 0.7 % (0.0-6.0); HEMATOCRIT 31.4 % (38.2-49.6); LYMPHOCYTES % 6.6 % (18.0-39.1); MEAN CORPUSCULAR HEMOGLOBIN 27.7 pg (28-32); MEAN CORPUSCULAR HGB CONC 31.8 g/dL (31-35); MONOCYTES # (AUTO) 1.4 (0.2-0.8); NEUTROPHILS # (AUTO) 12.3 (2.1-6.9); NEUTROPHILS % 80.8 % (38.7-80.0); PLATELET COUNT 276 x10e3/uL (140-360); RED BLOOD COUNT 3.61 x10e6/uL (4.3-5.7)
[2020-11-27 06:52] LABS: ANION GAP 14.5 mmol/L (8-16); BLOOD UREA NITROGEN 28 mg/dL (7-26); BUN/CREATININE RATIO 25 (6-25); CALCIUM 7.8 mg/dL (8.4-10.2); CARBON DIOXIDE 25 mmol/L (22-29); CHLORIDE 109 mmol/L (98-107); CREATININE, SERUM 1.11 mg/dL (0.72-1.25); EST GLOMERULAR FILTRATION RATE > 60 ML/MIN (60-); GLUCOSE 95 mg/dL (74-118); POTASSIUM 3.5 mmol/L (3.5-5.1); SODIUM 145 mmol/L (136-145)
[2020-11-27] MEDS: RASAGILINE 1 MG TAB PO SCH (09:09)
[2020-11-27] MEDS: DULOXETINE HCL 30 MG DELAYED RELEASE PO SCH ×2 (09:09→17:10)
[2020-11-27] MEDS: NON-FORMULARY MEDICATION (Entacapone (Comtan) 200 MG) PO SCH ×4 (09:09→20:12)
[2020-11-27 12:51] LABS: LYMPHOCYTES % (MANUAL) 6 % (19-48); MONOCYTES % (MANUAL) 3 % (3.4-9.0); NEUTROPHILS % (MANUAL) 91 % (40-74); PLATELET ESTIMATE ADEQUATE; PLATELET MORPHOLOGY COMMENT NORMAL; RBC MORPHOLOGY COMMENT NORMAL
[2020-11-27] MEDS: SODIUM CHLORIDE 0.9% 1000ML 1,000 ML IV SCH (14:57)
[2020-11-27] MEDS ORDERED: AMLODIPINE BESYLATE 10 MG TAB PO ONE (17:00)
[2020-11-27] MEDS: ROPINIROLE HCL 12 MG PO SCH (20:12)
[2020-11-28] VITALS (8 sets, daily range): BP systolic 130–148; BP diastolic 62–117
[2020-11-28] MEDS: MEROPENEM 500MG/ NS 50ML 50 ML IV SCH ×3 (03:51→20:15)
[2020-11-28] MEDS: SODIUM CHLORIDE 0.9% 1000ML 1,000 ML IV SCH (03:55)
[2020-11-28] MEDS ORDERED: HYDRALAZINE HCL 25 MG TAB PO PRN (08:45)
[2020-11-28] MEDS: NON-FORMULARY MEDICATION (Entacapone (Comtan) 200 MG) PO SCH ×4 (08:59→20:00)
[2020-11-28] MEDS: DULOXETINE HCL 30 MG DELAYED RELEASE PO SCH ×2 (08:59→16:09)
[2020-11-28] MEDS: RASAGILINE 1 MG TAB PO SCH (08:59)
[2020-11-28] MEDS: TAMSULOSIN HCL 0.4 MG CAP PO SCH (09:01)
[2020-11-28] MEDS: ENOXAPARIN SOD INJ 40 MG/0.4 ML SYR SC SCH (16:09)
[2020-11-28] MEDS: ROPINIROLE HCL 12 MG PO SCH (20:00)
[2020-11-29] VITALS (8 sets, daily range): BP systolic 126–172; BP diastolic 70–84
[2020-11-29] MEDS: MEROPENEM 500MG/ NS 50ML 50 ML IV SCH ×3 (04:00→20:50)
[2020-11-29 05:12] LABS: BASOPHILS % 0.4 % (0.0-1.0); EOSINOPHILS # (AUTO) 0.3 (0.0-0.4); EOSINOPHILS % 2.7 % (0.0-6.0); HEMATOCRIT 33.1 % (38.2-49.6); HEMOGLOBIN 10.7 g/dL (14.0-18.0); LYMPHOCYTES # (AUTO) 1.2 (1.0-3.2); LYMPHOCYTES % 13.2 % (18.0-39.1); MEAN CORPUSCULAR HEMOGLOBIN 27.7 pg (28-32); MEAN CORPUSCULAR HGB CONC 32.3 g/dL (31-35); MEAN CORPUSCULAR VOLUME 85.8 fL (81-99); MONOCYTES # (AUTO) 1.4 (0.2-0.8); MONOCYTES % 15.1 % (4.4-11.3); NEUTROPHILS # (AUTO) 5.8 (2.1-6.9); NEUTROPHILS % 63.4 % (38.7-80.0); PLATELET COUNT 248 x10e3/uL (140-360); RED BLOOD COUNT 3.86 x10e6/uL (4.3-5.7); RED CELL DISTRIBUTION WIDTH 13.6 % (11.7-14.4)
[2020-11-29 05:28] LABS: ANION GAP 14.5 mmol/L (8-16); BLOOD UREA NITROGEN 20 mg/dL (7-26); BUN/CREATININE RATIO 23 (6-25); CALCIUM 7.6 mg/dL (8.4-10.2); CARBON DIOXIDE 26 mmol/L (22-29); CHLORIDE 106 mmol/L (98-107); CREATININE, SERUM 0.88 mg/dL (0.72-1.25); EST GLOMERULAR FILTRATION RATE > 60 ML/MIN (60-); GLUCOSE 102 mg/dL (74-118); POTASSIUM 3.5 mmol/L (3.5-5.1); SODIUM 143 mmol/L (136-145)
[2020-11-29] MEDS: DULOXETINE HCL 30 MG DELAYED RELEASE PO SCH ×2 (08:16→16:16)
[2020-11-29] MEDS: NON-FORMULARY MEDICATION (Entacapone (Comtan) 200 MG) PO SCH ×4 (08:16→20:50)
[2020-11-29] MEDS: TAMSULOSIN HCL 0.4 MG CAP PO SCH (08:17)
[2020-11-29] MEDS: RASAGILINE 1 MG TAB PO SCH (08:17)
[2020-11-29] MEDS ORDERED: CIPRO250 MG PO (14:12)
[2020-11-29] MEDS: ENOXAPARIN SOD INJ 40 MG/0.4 ML SYR SC SCH (16:16)
[2020-11-29] MEDS: ROPINIROLE HCL 12 MG PO SCH (20:50)
[2020-11-30] VITALS: BP 150/73
[2020-11-30 04:00] VITALS: BP 148/73
[2020-11-30] MEDS: MEROPENEM 500MG/ NS 50ML 50 ML IV SCH (04:28)
[2020-11-30 05:51] LABS: BASOPHILS # (AUTO) 0.1 (0.0-0.1); BASOPHILS % 0.8 % (0.0-1.0); EOSINOPHILS # (AUTO) 0.4 (0.0-0.4); EOSINOPHILS % 3.7 % (0.0-6.0); HEMATOCRIT 34.9 % (38.2-49.6); HEMOGLOBIN 11.3 g/dL (14.0-18.0); LYMPHOCYTES # (AUTO) 2.3 (1.0-3.2); LYMPHOCYTES % 21.4 % (18.0-39.1); MEAN CORPUSCULAR HEMOGLOBIN 28.1 pg (28-32); MEAN CORPUSCULAR HGB CONC 32.4 g/dL (31-35); MEAN CORPUSCULAR VOLUME 86.8 fL (81-99); MONOCYTES # (AUTO) 1.2 (0.2-0.8); MONOCYTES % 11.5 % (4.4-11.3); NEUTROPHILS # (AUTO) 6.2 (2.1-6.9); NEUTROPHILS % 57.5 % (38.7-80.0); PLATELET COUNT 259 x10e3/uL (140-360); RED BLOOD COUNT 4.02 x10e6/uL (4.3-5.7); RED CELL DISTRIBUTION WIDTH 13.5 % (11.7-14.4)
[2020-11-30 07:22] VITALS: BP 130/62
[2020-11-30 07:32] VITALS: BP 130/62
[2020-11-30] MEDS: DULOXETINE HCL 30 MG DELAYED RELEASE PO SCH (08:25)
[2020-11-30] MEDS: TAMSULOSIN HCL 0.4 MG CAP PO SCH (08:25)
[2020-11-30] MEDS: RASAGILINE 1 MG TAB PO SCH (08:25)
[2020-11-30] MEDS: NON-FORMULARY MEDICATION (Entacapone (Comtan) 200 MG) PO SCH (08:25)
== END 2020-11-30 10:10 | disposition home or self-care (01) | DRG 698 ==
LOC: ER 15:50 → ERHOLD 17:20 → MED/SURG3 18:53
PROVIDERS: ADMIT Internal Medicine; ATTEND Internal Medicine
PROC: 0TWBX0Z Revision of Drainage Device in Bladder, External Approach (ICD-10-PCS; principal; 2020-11-25)
DX: T83.511A Infection and inflammatory reaction due to indwelling urethral catheter, initial encounter (principal); G92 Toxic encephalopathy; A41.52 Sepsis due to Pseudomonas; N17.9 Acute kidney failure, unspecified; N13.6 Pyonephrosis; N39.0 Urinary tract infection, site not specified; G20 Parkinson's disease; F02.80 Dementia in other diseases classified elsewhere, unspecified severity, without behavioral disturbance, psychotic disturbance, mood disturbance, and anxiety; F32.9 Major depressive disorder, single episode, unspecified; I10 Essential (primary) hypertension; Z20.822 Contact with and (suspected) exposure to COVID-19; E86.0 Dehydration; D64.9 Anemia, unspecified; R33.9 Retention of urine, unspecified
CPT/HCPCS: 36415; 71045; 74176; 80048; 80053; 81001; 82550; 82553; 82607; 82948; 83036; 83605; 83735; 83880; 84100; 84443; 84484; 85025; 87040; 87071; 87086; 87186; 87205; 93005; 96361; 97139; 99251; 99284; J1650; J2543; J7030; U0002

== ENCOUNTER → 2021-01-23 | Outpatient (CLI) | payer MEDICARE ==
[~2021-01-23] MED LIST changes: +CIPRO250 MG PO; +FLOMAX0.4 MG PO
== END ==
LOC: MRI 01-12 15:19
PROVIDERS: ATTEND Psychiatry & Neurology Neurology
DX: G20 Parkinson's disease (principal); F44.89 Other dissociative and conversion disorders; M54.16 Radiculopathy, lumbar region; M48.062 Spinal stenosis, lumbar region with neurogenic claudication; M47.816 Spondylosis without myelopathy or radiculopathy, lumbar region

== ENCOUNTER → 2021-03-20 | Outpatient (CLI) | payer MEDICARE ==
[~2021-03-20] MED LIST changes: +LACTATED RINGER'S 1,000 ML ONE; +POVIDONE IODINE 0.05% 0.05 % ML PO ONE; +PROPOFOL IV EMULSION 10 MG/ML 20 ML VIAL ONE; +SODIUM CHLORIDE 0.9% 100 ML ONE
[2021-03-20 09:35] LABS: BASOPHILS % 0.3 % (0.0-1.0); EOSINOPHILS % 0.5 % (0.0-6.0); HEMATOCRIT 42.4 % (38.2-49.6); LYMPHOCYTES # (AUTO) 2.3 (1.0-3.2); LYMPHOCYTES % 38.1 % (18.0-39.1); MEAN CORPUSCULAR HEMOGLOBIN 28.8 pg (28-32); MEAN CORPUSCULAR VOLUME 87.2 fL (81-99); MONOCYTES # (AUTO) 0.6 (0.2-0.8); MONOCYTES % 9.2 % (4.4-11.3); NEUTROPHILS # (AUTO) 3.1 (2.1-6.9); NEUTROPHILS % 51.6 % (38.7-80.0); PLATELET COUNT 245 x10e3/uL (140-360); RED BLOOD COUNT 4.86 x10e6/uL (4.3-5.7); RED CELL DISTRIBUTION WIDTH 13.7 % (11.7-14.4)
[2021-03-20 10:09] LABS: ANION GAP 12.9 mmol/L (8-16); CALCIUM 8.8 mg/dL (8.4-10.2); CREATININE, SERUM 0.85 mg/dL (0.72-1.25); POTASSIUM 3.9 mmol/L (3.5-5.1)
== END ==
LOC: MRI 08:49
PROVIDERS: ATTEND Psychiatry & Neurology Neurology
DX: G20 Parkinson's disease (principal); R41.3 Other amnesia; Z20.822 Contact with and (suspected) exposure to COVID-19
CPT/HCPCS: 36415; 70551; 80048; 85025; 93005; J2704; J7050; J7121; U0002

== ENCOUNTER 2021-09-06 11:39 | Emergency (ER) | payer MEDICARE ==
[~2021-09-06] VITALS: Ht 160 cm; Wt 59.9 kg
[~2021-09-06 11:39] MED LIST changes: -LACTATED RINGER'S 1,000 ML ONE; -POVIDONE IODINE 0.05% 0.05 % ML PO ONE; -PROPOFOL IV EMULSION 10 MG/ML 20 ML VIAL ONE; -SODIUM CHLORIDE 0.9% 100 ML ONE
== END 2021-09-06 15:03 | disposition home or self-care (01) ==
LOC: ER 11:51
DX: S22.41XA Multiple fractures of ribs, right side, initial encounter for closed fracture (principal); W06.XXXA Fall from bed, initial encounter; Y93.84 Activity, sleeping; Y92.003 Bedroom of unspecified non-institutional (private) residence as the place of occurrence of the external cause; G20 Parkinson's disease; F02.80 Dementia in other diseases classified elsewhere, unspecified severity, without behavioral disturbance, psychotic disturbance, mood disturbance, and anxiety; I10 Essential (primary) hypertension; D64.9 Anemia, unspecified
CPT/HCPCS: 71101; 72170; 99283

== ENCOUNTER 2022-03-27 17:01 | Emergency (ER) | payer MEDICARE ==
[~2022-03-27] VITALS: Ht 160 cm; Wt 59.9 kg
[2022-03-27 18:01] VITALS: BP 129/71
== END 2022-03-27 18:00 | disposition home or self-care (01) ==
LOC: ER 17:05
DX: Z46.6 Encounter for fitting and adjustment of urinary device (principal); R33.9 Retention of urine, unspecified; I10 Essential (primary) hypertension; G20 Parkinson's disease; F02.80 Dementia in other diseases classified elsewhere, unspecified severity, without behavioral disturbance, psychotic disturbance, mood disturbance, and anxiety; D64.9 Anemia, unspecified
CPT/HCPCS: 99283

== ENCOUNTER 2022-06-01 15:04 | Inpatient (IN) | payer MEDICARE ==
[~2022-06-01] VITALS: Ht 160 cm; Wt 49.9 kg
[2022-06-01] MEDS ORDERED: SODIUM CHLORIDE 0.9% 1000ML 500 ML IV ONE (16:00)
[2022-06-01 16:04] LABS: BASOPHILS % 0.2 % (0.0-1.0); EOSINOPHILS # (AUTO) 0.1 (0.0-0.4); EOSINOPHILS % 0.6 % (0.0-6.0); HEMATOCRIT 38.5 % (38.2-49.6); HEMOGLOBIN 12.3 g/dL (14.0-18.0); LYMPHOCYTES # (AUTO) 0.9 (1.0-3.2); LYMPHOCYTES % 6.8 % (18.0-39.1); MEAN CORPUSCULAR HEMOGLOBIN 28.8 pg (28-32); MEAN CORPUSCULAR HGB CONC 31.9 g/dL (31-35); MEAN CORPUSCULAR VOLUME 90.2 fL (81-99); MONOCYTES # (AUTO) 0.9 (0.2-0.8); MONOCYTES % 6.5 % (4.4-11.3); NEUTROPHILS # (AUTO) 11.5 (2.1-6.9); NEUTROPHILS % 85.4 % (38.7-80.0); PLATELET COUNT 348 x10e3/uL (140-360); RED BLOOD COUNT 4.27 x10e6/uL (4.3-5.7); RED CELL DISTRIBUTION WIDTH 13.6 % (11.7-14.4)
[2022-06-01] MEDS ORDERED: SODIUM CHLORIDE 0.9% 500ML 500 ML IV ONE (16:15)
[2022-06-01 16:19] LABS: PHOSPHORUS 3.3 MG/DL (2.3-4.7)
[2022-06-01 16:22] LABS: ALANINE AMINOTRANSFERASE 12 IU/L (0-55); ALBUMIN 2.9 g/dL (3.5-5.0); ALBUMIN/GLOBULIN RATIO 0.8 (0.8-2.0); ALKALINE PHOSPHATASE 263 IU/L (40-150); ANION GAP 16.3 mmol/L (8-16); BLOOD UREA NITROGEN 19 mg/dL (7-26); BUN/CREATININE RATIO 23 (6-25); CALCIUM 9.1 mg/dL (8.4-10.2); CARBON DIOXIDE 28 mmol/L (22-29); CHLORIDE 100 mmol/L (98-107); CREATININE, SERUM 0.81 mg/dL (0.72-1.25); GLUCOSE 151 mg/dL (74-118); POTASSIUM 4.3 mmol/L (3.5-5.1); SODIUM 140 mmol/L (136-145)
[2022-06-01] MEDS ORDERED: SODIUM CHLORIDE 0.9% 500ML 500 ML ONE (16:24)
[2022-06-01 18:11] LABS: CLARITY,URINE HAZY (CLEAR); COLOR,URINE ORANGE (YELLOW); LEUKOCYTE ESTERASE ,URINE LARGE (NEGATIVE); NITRITE,URINE POSITIVE (NEGATIVE)
[2022-06-01 18:12] LABS: KETONES,URINE TRACE (NEGATIVE); PROTEIN,URINE DIPSTICK 2+ (NEGATIVE); URINE UROBILINOGEN 0.2 mg/dL (0.2 - 1)
[2022-06-01] MEDS ORDERED: ONDANSETRON HCL INJ 2MG/ML 2ML 2 MG/ML VIAL IV PRN (18:15)
[2022-06-01 18:19] LABS: BACTERIA,URINE MANY /HPF; WBC,URINE (MAN) 21-50 /HPF (0-5)
[2022-06-01 18:20] LABS: AMORPHOUS SEDIMENT,URINE FEW (FEW)
[2022-06-01] MEDS: SODIUM CHLORIDE 0.9% 1000ML 1,000 ML IV SCH (18:26)
[2022-06-01 18:27] LABS: LACTATE DEHYDROGENASE 172 IU/L (125-220)
[2022-06-01 18:35] LABS: HCG,QUANTITATIVE < 1.20 mIU/mL (0-10)
[2022-06-01 23:57] VITALS: BP 127/52
[2022-06-02] VITALS (7 sets, daily range): BP systolic 125–165; BP diastolic 52–85
[2022-06-02] MEDS: SODIUM CHLORIDE 0.9% 1000ML 1,000 ML IV SCH ×2 (00:35→06:36)
[2022-06-02] MEDS ORDERED: CARBIDOPA-LEVO1 EACH PO (09:13)
[2022-06-02 11:46] LABS: BASOPHILS % 0.4 % (0.0-1.0); EOSINOPHILS # (AUTO) 0.1 (0.0-0.4); EOSINOPHILS % 1.6 % (0.0-6.0); HEMATOCRIT 38.2 % (38.2-49.6); HEMOGLOBIN 12.3 g/dL (14.0-18.0); LYMPHOCYTES % 13.7 % (18.0-39.1); MEAN CORPUSCULAR HGB CONC 32.2 g/dL (31-35); MEAN CORPUSCULAR VOLUME 90.1 fL (81-99); MONOCYTES # (AUTO) 0.6 (0.2-0.8); MONOCYTES % 8.1 % (4.4-11.3); NEUTROPHILS # (AUTO) 5.5 (2.1-6.9); NEUTROPHILS % 75.8 % (38.7-80.0); PLATELET COUNT 283 x10e3/uL (140-360); RED BLOOD COUNT 4.24 x10e6/uL (4.3-5.7); RED CELL DISTRIBUTION WIDTH 13.5 % (11.7-14.4)
[2022-06-02 12:36] LABS: ANION GAP 13.9 mmol/L (8-16); CALCIUM 8.4 mg/dL (8.4-10.2); CREATININE, SERUM 0.69 mg/dL (0.72-1.25); POTASSIUM 3.9 mmol/L (3.5-5.1)
[2022-06-02] MEDS: ENTACAPONE 200 MG PO SCH ×3 (13:00→21:21)
[2022-06-02] MEDS: LOSARTAN POTASSIUM 25 MG TAB PO SCH (13:47)
[2022-06-02] MEDS: CARBIDOPA/LEVODOPA 25/100 CR TAB PO SCH ×2 (15:00→21:20)
[2022-06-02] MEDS ORDERED: SODIUM CHLORIDE 0.9% 250ML 0 ML ONE (15:10)
[2022-06-02] MEDS ORDERED: IOPAMIDOL 370 MG/ML 100 ML INFUS..BTL INJ ONE (15:10)
[2022-06-02] MEDS ORDERED: SODIUM CHLORIDE 0.9% 250ML 250 ML ONE (15:18)
[2022-06-02] MEDS: TAMSULOSIN HCL 0.4 MG CAP PO SCH (21:20)
[2022-06-02] MEDS: [UNRECOGNIZED DRUG - OTHER] PO SCH (21:21)
[2022-06-03] VITALS (7 sets, daily range): BP systolic 135–171; BP diastolic 72–82
[2022-06-03] MEDS: SODIUM CHLORIDE 0.9% 1000ML 1,000 ML IV SCH ×3 (00:12→22:07)
[2022-06-03 06:29] LABS: BASOPHILS % 0.4 % (0.0-1.0); EOSINOPHILS # (AUTO) 0.1 (0.0-0.4); EOSINOPHILS % 2.1 % (0.0-6.0); HEMATOCRIT 40.9 % (38.2-49.6); HEMOGLOBIN 13.2 g/dL (14.0-18.0); LYMPHOCYTES % 15.2 % (18.0-39.1); MEAN CORPUSCULAR HEMOGLOBIN 28.9 pg (28-32); MEAN CORPUSCULAR HGB CONC 32.3 g/dL (31-35); MEAN CORPUSCULAR VOLUME 89.7 fL (81-99); MONOCYTES # (AUTO) 0.5 (0.2-0.8); MONOCYTES % 7.9 % (4.4-11.3); NEUTROPHILS # (AUTO) 4.9 (2.1-6.9); NEUTROPHILS % 73.7 % (38.7-80.0); PLATELET COUNT 363 x10e3/uL (140-360); RED BLOOD COUNT 4.56 x10e6/uL (4.3-5.7); RED CELL DISTRIBUTION WIDTH 13.2 % (11.7-14.4)
[2022-06-03 06:40] LABS: ANION GAP 14.1 mmol/L (8-16); CALCIUM 8.7 mg/dL (8.4-10.2); CREATININE, SERUM 0.67 mg/dL (0.72-1.25); POTASSIUM 4.1 mmol/L (3.5-5.1)
[2022-06-03] MEDS ORDERED: TAMSULOSIN HCL 0.4 MG CAP PO SCH (09:00)
[2022-06-03] MEDS: CARBIDOPA/LEVODOPA 25/100 CR TAB PO SCH ×3 (09:26→22:08)
[2022-06-03] MEDS: AZILECT 1 MG PO SCH (09:26)
[2022-06-03] MEDS: ENTACAPONE 200 MG PO SCH ×4 (09:26→22:08)
[2022-06-03] MEDS: [UNRECOGNIZED DRUG - OTHER] PO SCH (09:26)
[2022-06-03] MEDS: TAMSULOSIN HCL 0.4 MG CAP PO SCH (22:07)
[2022-06-03] MEDS: [UNRECOGNIZED DRUG - OTHER] PO SCH (22:08)
[2022-06-04] VITALS (8 sets, daily range): BP systolic 124–166; BP diastolic 70–93
[2022-06-04] MEDS: SODIUM CHLORIDE 0.9% 1000ML 1,000 ML IV SCH ×2 (05:27→16:24)
[2022-06-04] MEDS: LOSARTAN POTASSIUM 25 MG TAB PO SCH (08:51)
[2022-06-04] MEDS: ENTACAPONE 200 MG PO SCH ×3 (08:52→17:43)
[2022-06-04] MEDS: CARBIDOPA/LEVODOPA 25/100 CR TAB PO SCH ×2 (08:53→16:23)
[2022-06-04] MEDS: AZILECT 1 MG PO SCH (08:54)
[2022-06-04] MEDS: [UNRECOGNIZED DRUG - OTHER] PO SCH (08:54)
[2022-06-04] MEDS ORDERED: ONDANSETRON HCL 4 MG ORAL DISINTEGRATING TAB PO PRN (19:45)
== END 2022-06-04 22:00 | disposition home or self-care (01) | DRG 727 ==
LOC: ER 15:21 → ERHOLD 18:04 → MED/SURG3 22:38
PROVIDERS: ADMIT Internal Medicine; ATTEND Internal Medicine
DX: N45.4 Abscess of epididymis or testis (principal); E43 Unspecified severe protein-calorie malnutrition; Z68.1 Body mass index [BMI] 19.9 or less, adult; N13.6 Pyonephrosis; R62.7 Adult failure to thrive; G20 Parkinson's disease; F02.80 Dementia in other diseases classified elsewhere, unspecified severity, without behavioral disturbance, psychotic disturbance, mood disturbance, and anxiety; I95.9 Hypotension, unspecified; N40.1 Benign prostatic hyperplasia with lower urinary tract symptoms; R33.8 Other retention of urine; N45.3 Epididymo-orchitis; R63.0 Anorexia; I10 Essential (primary) hypertension; D64.9 Anemia, unspecified; Z20.822 Contact with and (suspected) exposure to COVID-19; Z93.6 Other artificial openings of urinary tract status; B96.20 Unspecified Escherichia coli [E. coli] as the cause of diseases classified elsewhere; N31.9 Neuromuscular dysfunction of bladder, unspecified
CPT/HCPCS: 0223U; 36415; 51700; 74178; 76870; 80048; 80053; 81001; 82105; 83615; 83735; 84100; 84484; 84702; 85025; 87040; 87086; 87186; 93005; 93976; 96361; 99284; J2543; J7030; J7040; J7050; Q9967

== ENCOUNTER 2022-06-13 16:07 | Emergency (ER) | payer MEDICARE ==
[~2022-06-13] VITALS: Ht 160 cm; Wt 49.9 kg
[~2022-06-13 16:07] MED LIST changes: +CARBIDOPA-LEVO1 EACH PO
[2022-06-13 17:47] VITALS: BP 147/70
== END 2022-06-13 17:38 | disposition home or self-care (01) ==
LOC: ER 16:10
DX: Z46.6 Encounter for fitting and adjustment of urinary device (principal); I10 Essential (primary) hypertension; D64.9 Anemia, unspecified; G20 Parkinson's disease
CPT/HCPCS: 51700; 87086; 87186; 99283

== ENCOUNTER 2022-07-23 15:25 | Emergency (ER) | payer MEDICARE ==
[~2022-07-23] VITALS: Ht 160 cm; Wt 49.9 kg
[2022-07-23 18:39] LABS: COLOR,URINE YELLOW (YELLOW); LEUKOCYTE ESTERASE ,URINE MODERATE (NEGATIVE); NITRITE,URINE POSITIVE (NEGATIVE)
[2022-07-23 18:40] LABS: CLARITY,URINE SL CLOUDY (CLEAR); KETONES,URINE NEGATIVE (NEGATIVE); PROTEIN,URINE DIPSTICK >=300 (NEGATIVE); URINE UROBILINOGEN 0.2 mg/dL (0.2 - 1)
[2022-07-23 18:49] LABS: BACTERIA,URINE MANY /HPF; WBC,URINE (MAN) 21-50 /HPF (0-5)
== END 2022-07-23 18:52 | disposition home or self-care (01) ==
LOC: ER 16:01
DX: Z46.6 Encounter for fitting and adjustment of urinary device (principal); I10 Essential (primary) hypertension; D64.9 Anemia, unspecified; G20 Parkinson's disease; F02.80 Dementia in other diseases classified elsewhere, unspecified severity, without behavioral disturbance, psychotic disturbance, mood disturbance, and anxiety
CPT/HCPCS: 51700; 81001; 99283

== ENCOUNTER 2022-07-30 14:36 | Emergency (ER) | payer MEDICARE ==
[~2022-07-30] VITALS: Ht 160 cm; Wt 51.3 kg
[2022-07-30 16:04] LABS: CLARITY,URINE TURBID (CLEAR); COLOR,URINE ORANGE (YELLOW); KETONES,URINE TRACE (NEGATIVE); LEUKOCYTE ESTERASE ,URINE LARGE (NEGATIVE); NITRITE,URINE POSITIVE (NEGATIVE); PROTEIN,URINE DIPSTICK >=300 (NEGATIVE); URINE UROBILINOGEN 0.2 mg/dL (0.2 - 1)
[2022-07-30 16:16] LABS: BACTERIA,URINE MODERATE /HPF; RBC,URINE 21-50 /HPF (0-5); WBC,URINE (MAN) 21-50 /HPF (0-5)
[2022-07-30] MEDS ORDERED: CEFDINIR 300 MG CAP PO ONE (16:34)
[2022-07-30] MEDS ORDERED: CEFDINIR300 MG PO (16:35)
[2022-07-30] MEDS ORDERED: CEFDINIR 300 MG CAP ONE (16:53)
== END 2022-07-30 16:54 | disposition home or self-care (01) ==
LOC: ER 14:56
DX: Z46.6 Encounter for fitting and adjustment of urinary device (principal); N39.0 Urinary tract infection, site not specified; I10 Essential (primary) hypertension; D64.9 Anemia, unspecified; G20 Parkinson's disease; F02.80 Dementia in other diseases classified elsewhere, unspecified severity, without behavioral disturbance, psychotic disturbance, mood disturbance, and anxiety
CPT/HCPCS: 51700; 81001; 87086; 87186; 99284

== ENCOUNTER 2022-09-24 14:39 | Emergency (ER) | payer MEDICARE ==
[~2022-09-24] VITALS: Ht 160 cm; Wt 51.3 kg
[~2022-09-24 14:39] MED LIST changes: +CEFDINIR300 MG PO
[2022-09-24 16:59] LABS: CLARITY,URINE SL CLOUDY (CLEAR); COLOR,URINE YELLOW (YELLOW); LEUKOCYTE ESTERASE ,URINE MODERATE (NEGATIVE); NITRITE,URINE POSITIVE (NEGATIVE); PROTEIN,URINE DIPSTICK TRACE (NEGATIVE)
[2022-09-24 17:00] LABS: KETONES,URINE NEGATIVE (NEGATIVE); URINE UROBILINOGEN 0.2 mg/dL (0.2 - 1)
[2022-09-24 17:07] LABS: WBC,URINE (MAN) >50 /HPF (0-5)
[2022-09-24 17:08] LABS: BACTERIA,URINE MANY /HPF
[2022-09-24 17:10] LABS: EPITHELIAL CELLS,URINE FEW /LPF
[2022-09-24] MEDS ORDERED: CEFDINIR 300 MG CAP PO ONE (17:15)
[2022-09-24] MEDS ORDERED: CEFDINIR300 MG PO (17:15)
== END 2022-09-24 17:37 | disposition home or self-care (01) ==
LOC: ER 14:54
DX: T83.091A Other mechanical complication of indwelling urethral catheter, initial encounter (principal); N39.0 Urinary tract infection, site not specified; I10 Essential (primary) hypertension; D64.9 Anemia, unspecified; G20 Parkinson's disease; F02.80 Dementia in other diseases classified elsewhere, unspecified severity, without behavioral disturbance, psychotic disturbance, mood disturbance, and anxiety
CPT/HCPCS: 51700; 81001; 87086; 87186; 99284

== ENCOUNTER 2022-10-08 14:31 | Inpatient (IN) | payer MEDICARE ==
[~2022-10-08] VITALS: Ht 160 cm; Wt 45.4 kg
[2022-10-08] MEDS ORDERED: SODIUM CHLORIDE 0.9% 1000ML 1,000 ML IV ONE ×2 (15:30→21:45)
[2022-10-08] MEDS ORDERED: CEFTRIAXONE 1 GM VIAL IV SCH (15:30)
[2022-10-08 15:50] LABS: BASOPHILS % 0.2 % (0.0-1.0); EOSINOPHILS % 0.1 % (0.0-6.0); HEMATOCRIT 43.3 % (38.2-49.6); HEMOGLOBIN 13.5 g/dL (14.0-18.0); LYMPHOCYTES # (AUTO) 0.4 (1.0-3.2); LYMPHOCYTES % 2.3 % (18.0-39.1); MEAN CORPUSCULAR HGB CONC 31.2 g/dL (31-35); MEAN CORPUSCULAR VOLUME 92.9 fL (81-99); MONOCYTES # (AUTO) 0.8 (0.2-0.8); MONOCYTES % 5.4 % (4.4-11.3); NEUTROPHILS # (AUTO) 13.9 (2.1-6.9); NEUTROPHILS % 91.4 % (38.7-80.0); PLATELET COUNT 228 x10e3/uL (140-360); RED BLOOD COUNT 4.66 x10e6/uL (4.3-5.7); RED CELL DISTRIBUTION WIDTH 14.1 % (11.7-14.4)
[2022-10-08 15:54] LABS: BACTERIA,URINE MANY /HPF; CLARITY,URINE TURBID (CLEAR); COLOR,URINE YELLOW (YELLOW); KETONES,URINE NEGATIVE (NEGATIVE); LEUKOCYTE ESTERASE ,URINE MODERATE (NEGATIVE); NITRITE,URINE POSITIVE (NEGATIVE); PROTEIN,URINE DIPSTICK 2+ (NEGATIVE); RBC,URINE 0-5 /HPF (0-5); URINE UROBILINOGEN 0.2 mg/dL (0.2 - 1); WBC,URINE (MAN) 21-50 /HPF (0-5)
[2022-10-08 15:58] LABS: PROTHROMBIN TIME 13.4 seconds (11.9-14.5)
[2022-10-08 15:59] LABS: PARTIAL THROMBOPLASTIN TIME 30.5 seconds (23.8-35.5)
[2022-10-08 16:05] LABS: ALBUMIN 3.8 g/dL (3.5-5.0); ALBUMIN/GLOBULIN RATIO 1.2 (0.8-2.0); ALKALINE PHOSPHATASE 88 IU/L (40-150); ANION GAP 13.5 mmol/L (8-16); BLOOD UREA NITROGEN 23 mg/dL (7-26); BUN/CREATININE RATIO 26 (6-25); CARBON DIOXIDE 27 mmol/L (22-29); CHLORIDE 103 mmol/L (98-107); CREATININE, SERUM 0.89 mg/dL (0.72-1.25); GLUCOSE 108 mg/dL (74-118); POTASSIUM 4.5 mmol/L (3.5-5.1); SODIUM 139 mmol/L (136-145)
[2022-10-08 16:06] LABS: ALANINE AMINOTRANSFERASE < 6 IU/L (0-55)
[2022-10-08] MEDS ORDERED: ACETAMINOPHEN 325 MG TAB PO ONE (18:00)
[2022-10-08] MEDS ORDERED: SODIUM CHLORIDE FLUSH 10 ML SYR INJ PRN (18:00)
[2022-10-08] MEDS ORDERED: ONDANSETRON HCL INJ 2MG/ML 2ML 2 MG/ML VIAL IV PRN (18:00)
[2022-10-08 20:40] VITALS: BP 112/60
[2022-10-08 21:00] VITALS: BP 112/60
[2022-10-08] MEDS: MEROPENEM 1 GM in SODIUM CHLORIDE 0.9% 100 ML IV SCH (22:43)
[2022-10-09] VITALS (7 sets, daily range): BP systolic 108–149; BP diastolic 54–73
[2022-10-09] MEDS: MEROPENEM 1 GM in SODIUM CHLORIDE 0.9% 100 ML IV SCH ×3 (04:16→22:28)
[2022-10-09 06:03] LABS: BASOPHILS % 0.2 % (0.0-1.0); EOSINOPHILS # (AUTO) 0.1 (0.0-0.4); EOSINOPHILS % 0.4 % (0.0-6.0); HEMATOCRIT 38.4 % (38.2-49.6); HEMOGLOBIN 11.9 g/dL (14.0-18.0); MEAN CORPUSCULAR HEMOGLOBIN 28.7 pg (28-32); MEAN CORPUSCULAR VOLUME 92.5 fL (81-99); MONOCYTES % 7.9 % (4.4-11.3); NEUTROPHILS # (AUTO) 10.1 (2.1-6.9); PLATELET COUNT 202 x10e3/uL (140-360); RED BLOOD COUNT 4.15 x10e6/uL (4.3-5.7); RED CELL DISTRIBUTION WIDTH 14.1 % (11.7-14.4)
[2022-10-09] MEDS ORDERED: QUETIAPINE FUMA50 M1 PO (06:29)
[2022-10-09] MEDS ORDERED: CIPROFLOXACIN500 MG PO (06:29)
[2022-10-09] MEDS ORDERED: DONEPEZIL HCL10 MG PO (06:29)
[2022-10-09] MEDS ORDERED: ENTACAPONE200 MG PO (06:29)
[2022-10-09 06:43] LABS: CALCIUM 7.9 mg/dL (8.4-10.2); CREATININE, SERUM 0.73 mg/dL (0.72-1.25)
[2022-10-09] MEDS ORDERED: IOPAMIDOL 370 MG/ML 100 ML INFUS..BTL INJ ONE (16:55)
[2022-10-10] VITALS (8 sets, daily range): BP systolic 105–129; BP diastolic 54–82
[2022-10-10] MEDS: MEROPENEM 1 GM in SODIUM CHLORIDE 0.9% 100 ML IV SCH ×3 (05:29→22:11)
[2022-10-11] VITALS (8 sets, daily range): BP systolic 101–158; BP diastolic 57–73
[2022-10-11] MEDS: MEROPENEM 1 GM in SODIUM CHLORIDE 0.9% 100 ML IV SCH ×4 (05:21→22:21)
[2022-10-12 04:00] VITALS: BP 144/65
[2022-10-12] MEDS: MEROPENEM 1 GM in SODIUM CHLORIDE 0.9% 100 ML IV SCH ×3 (06:35→22:50)
[2022-10-12] MEDS ORDERED: SODIUM CHLORIDE 0.9% 250ML 250 ML ONE (06:44)
[2022-10-12 08:37] VITALS: BP 141/81
[2022-10-12] MEDS ORDERED: NON-FORMULARY MEDICATION (Entacapone 200 MG) PO SCH (09:00)
[2022-10-12] MEDS ORDERED: ROPINIROLE HCL 12 MG PO SCH (09:00)
[2022-10-12] MEDS ORDERED: CARBIDOPA/LEVODOPA 10/100 TAB PO SCH (09:00)
[2022-10-12] MEDS: LEVODOPA PO SCH ×3 (09:32→22:51)
[2022-10-12] MEDS: CARBIDOPA PO SCH ×3 (09:32→22:51)
[2022-10-12 11:54] VITALS: BP 140/77
[2022-10-12 16:22] VITALS: BP 166/82
[2022-10-12 20:00] VITALS: BP 127/83
[2022-10-12] MEDS: QUETIAPINE 50 MG PO SCH (21:00)
[2022-10-12] MEDS ORDERED: BISACODYL 5 MG TAB EC PO ONE (22:45)
[2022-10-12] MEDS: DONEPEZIL HCL 5 MG TAB PO SCH ×2 (22:50→22:59)
[2022-10-13] VITALS (7 sets, daily range): BP systolic 91–135; BP diastolic 56–83
[2022-10-13] MEDS: MEROPENEM 1 GM in SODIUM CHLORIDE 0.9% 100 ML IV SCH ×3 (06:04→22:07)
[2022-10-13] MEDS: ROPINIROLE 12 MG PO SCH (09:52)
[2022-10-13] MEDS: LEVODOPA PO SCH ×3 (09:52→22:05)
[2022-10-13] MEDS: CARBIDOPA PO SCH ×3 (09:52→22:05)
[2022-10-13] MEDS: QUETIAPINE 50 MG PO SCH (21:00)
[2022-10-13] MEDS: DONEPEZIL HCL 5 MG TAB PO SCH (22:05)
[2022-10-14] VITALS (10 sets, daily range): BP systolic 109–190; BP diastolic 66–91
[2022-10-14] MEDS: MEROPENEM 1 GM in SODIUM CHLORIDE 0.9% 100 ML IV SCH ×3 (05:45→20:49)
[2022-10-14] MEDS: ROPINIROLE 12 MG PO SCH (09:14)
[2022-10-14] MEDS: LEVODOPA PO SCH ×3 (09:14→20:47)
[2022-10-14] MEDS: CARBIDOPA PO SCH ×3 (09:14→20:47)
[2022-10-14] MEDS: QUETIAPINE 50 MG PO SCH (20:47)
[2022-10-14] MEDS: DONEPEZIL HCL 5 MG TAB PO SCH (21:02)
[2022-10-15] VITALS (8 sets, daily range): BP systolic 123–176; BP diastolic 66–103
[2022-10-15] MEDS: MEROPENEM 1 GM in SODIUM CHLORIDE 0.9% 100 ML IV SCH ×3 (05:50→20:50)
[2022-10-15 05:56] LABS: BASOPHILS % 0.7 % (0.0-1.0); EOSINOPHILS # (AUTO) 0.1 (0.0-0.4); EOSINOPHILS % 1.7 % (0.0-6.0); HEMATOCRIT 45.1 % (38.2-49.6); HEMOGLOBIN 14.4 g/dL (14.0-18.0); LYMPHOCYTES # (AUTO) 2.1 (1.0-3.2); LYMPHOCYTES % 36.1 % (18.0-39.1); MEAN CORPUSCULAR HGB CONC 31.9 g/dL (31-35); MEAN CORPUSCULAR VOLUME 90.9 fL (81-99); MONOCYTES # (AUTO) 0.7 (0.2-0.8); MONOCYTES % 11.3 % (4.4-11.3); NEUTROPHILS # (AUTO) 2.9 (2.1-6.9); PLATELET COUNT 278 x10e3/uL (140-360); RED BLOOD COUNT 4.96 x10e6/uL (4.3-5.7); RED CELL DISTRIBUTION WIDTH 13.2 % (11.7-14.4)
[2022-10-15 06:24] LABS: ANION GAP 11.7 mmol/L (8-16); CREATININE, SERUM 0.66 mg/dL (0.72-1.25); POTASSIUM 3.7 mmol/L (3.5-5.1)
[2022-10-15] MEDS: ROPINIROLE 12 MG PO SCH (09:00)
[2022-10-15] MEDS: CARBIDOPA PO SCH ×3 (09:00→20:49)
[2022-10-15] MEDS: LEVODOPA PO SCH ×3 (09:00→20:49)
[2022-10-15] MEDS ORDERED: SODIUM CHLORIDE 0.9% 250ML 250 ML ONE (14:50)
[2022-10-15] MEDS: DONEPEZIL HCL 5 MG TAB PO SCH (20:48)
[2022-10-15] MEDS: QUETIAPINE 50 MG PO SCH (20:50)
[2022-10-16] VITALS (8 sets, daily range): BP systolic 104–148; BP diastolic 55–73
[2022-10-16] MEDS: MEROPENEM 1 GM in SODIUM CHLORIDE 0.9% 100 ML IV SCH ×3 (06:28→21:05)
[2022-10-16] MEDS: LEVODOPA PO SCH ×3 (07:39→21:05)
[2022-10-16] MEDS: ROPINIROLE 12 MG PO SCH (07:39)
[2022-10-16] MEDS: CARBIDOPA PO SCH ×3 (07:39→21:05)
[2022-10-16] MEDS: DONEPEZIL HCL 5 MG TAB PO SCH (21:04)
[2022-10-16] MEDS: QUETIAPINE 50 MG PO SCH (21:05)
[2022-10-17] VITALS (8 sets, daily range): BP systolic 104–164; BP diastolic 17–84
[2022-10-17] MEDS: MEROPENEM 1 GM in SODIUM CHLORIDE 0.9% 100 ML IV SCH ×3 (05:58→21:19)
[2022-10-17] MEDS: LEVODOPA PO SCH ×3 (09:00→21:21)
[2022-10-17] MEDS: ROPINIROLE 12 MG PO SCH (09:00)
[2022-10-17] MEDS: CARBIDOPA PO SCH ×3 (09:00→21:21)
[2022-10-17] MEDS ORDERED: ONDANSETRON HCL 4 MG ORAL DISINTEGRATING TAB PO PRN (14:30)
[2022-10-17] MEDS: DONEPEZIL HCL 5 MG TAB PO SCH (21:19)
[2022-10-17] MEDS: QUETIAPINE 50 MG PO SCH (21:21)
[2022-10-18] VITALS (9 sets, daily range): BP systolic 128–176; BP diastolic 65–78
[2022-10-18] MEDS: MEROPENEM 1 GM in SODIUM CHLORIDE 0.9% 100 ML IV SCH ×2 (06:41→12:55)
[2022-10-18] MEDS: ROPINIROLE 12 MG PO SCH (09:44)
[2022-10-18] MEDS: LEVODOPA PO SCH ×3 (09:44→21:01)
[2022-10-18] MEDS: CARBIDOPA PO SCH ×3 (09:44→21:01)
[2022-10-18] MEDS ORDERED: SODIUM CHLORIDE 0.9% 250ML 250 ML ONE (12:08)
[2022-10-18] MEDS: DONEPEZIL HCL 5 MG TAB PO SCH (21:00)
[2022-10-18] MEDS: QUETIAPINE 50 MG PO SCH (21:01)
[2022-10-19] VITALS (8 sets, daily range): BP systolic 94–130; BP diastolic 47–82
[2022-10-19] MEDS: CARBIDOPA PO SCH ×3 (08:20→20:55)
[2022-10-19] MEDS: LEVODOPA PO SCH ×3 (08:20→20:55)
[2022-10-19] MEDS: ROPINIROLE 12 MG PO SCH (08:20)
[2022-10-19] MEDS: MEROPENEM 1 GM in SODIUM CHLORIDE 0.9% 100 ML IV SCH (16:06)
[2022-10-19] MEDS: DONEPEZIL HCL 5 MG TAB PO SCH (20:55)
[2022-10-19] MEDS: QUETIAPINE 50 MG PO SCH (20:56)
[2022-10-20] VITALS (8 sets, daily range): BP systolic 100–169; BP diastolic 54–85
[2022-10-20] MEDS: MEROPENEM 1 GM in SODIUM CHLORIDE 0.9% 100 ML IV SCH ×4 (00:40→23:41)
[2022-10-20] MEDS: ROPINIROLE 12 MG PO SCH (09:00)
[2022-10-20] MEDS: CARBIDOPA PO SCH ×3 (09:15→21:02)
[2022-10-20] MEDS: LEVODOPA PO SCH ×3 (09:15→21:02)
[2022-10-20] MEDS: QUETIAPINE 50 MG PO SCH (21:01)
[2022-10-20] MEDS: DONEPEZIL HCL 5 MG TAB PO SCH (21:02)
[2022-10-21 08:00] VITALS: BP 159/89
[2022-10-21] MEDS: CARBIDOPA PO SCH ×3 (08:37→22:53)
[2022-10-21] MEDS: MEROPENEM 1 GM in SODIUM CHLORIDE 0.9% 100 ML IV SCH ×2 (08:37→15:38)
[2022-10-21] MEDS: ROPINIROLE 12 MG PO SCH (08:37)
[2022-10-21] MEDS: LEVODOPA PO SCH ×3 (08:37→22:53)
[2022-10-21 10:01] VITALS: BP 159/79
[2022-10-21 13:31] VITALS: BP 128/76
[2022-10-21 16:26] VITALS: BP 138/63
[2022-10-21 20:00] VITALS: BP 125/66
[2022-10-21 20:58] VITALS: BP 138/63
[2022-10-21] MEDS: QUETIAPINE 50 MG PO SCH (22:00)
[2022-10-21] MEDS: DONEPEZIL HCL 5 MG TAB PO SCH (22:00)
[2022-10-22] MEDS: MEROPENEM 1 GM in SODIUM CHLORIDE 0.9% 100 ML IV SCH ×2 (01:08→09:52)
[2022-10-22 01:42] VITALS: BP 174/69
[2022-10-22 06:08] VITALS: BP 140/72
[2022-10-22 08:30] VITALS: BP 137/75
[2022-10-22] MEDS: ROPINIROLE 12 MG PO SCH (09:00)
[2022-10-22 09:10] VITALS: BP 137/75
[2022-10-22] MEDS: LEVODOPA PO SCH (09:51)
[2022-10-22] MEDS: CARBIDOPA PO SCH (09:51)
[2022-10-22 13:58] VITALS: BP 106/69
== END 2022-10-22 15:45 | disposition home or self-care (01) | DRG 698 ==
LOC: ER 14:40 → INTOOBSV 18:01 → ERHOLD 18:01 → MED/SURG3 21:30 → OBSVTOIN 10-10 11:51
PROVIDERS: ADMIT Internal Medicine; ATTEND Internal Medicine
PROC: 3E04329 Introduction of Other Anti-infective into Central Vein, Percutaneous Approach (ICD-10-PCS; principal; 2022-10-10)
PROC: 02HV33Z Insertion of Infusion Device into Superior Vena Cava, Percutaneous Approach (ICD-10-PCS; 2022-10-14)
DX: T83.511A Infection and inflammatory reaction due to indwelling urethral catheter, initial encounter (principal); A41.9 Sepsis, unspecified organism; Z16.24 Resistance to multiple antibiotics; Z16.12 Extended spectrum beta lactamase (ESBL) resistance; G20 Parkinson's disease; N40.1 Benign prostatic hyperplasia with lower urinary tract symptoms; R33.8 Other retention of urine; E87.6 Hypokalemia; N31.2 Flaccid neuropathic bladder, not elsewhere classified; R31.29 Other microscopic hematuria; F02.B0 Dementia in other diseases classified elsewhere, moderate, without behavioral disturbance, psychotic disturbance, mood disturbance, and anxiety; N39.0 Urinary tract infection, site not specified; B96.20 Unspecified Escherichia coli [E. coli] as the cause of diseases classified elsewhere
CPT/HCPCS: 36415; 36584; 51700; 71045; 74177; 80048; 80053; 81001; 82948; 83605; 85025; 85610; 85730; 87040; 87086; 87186; 93005; 99252; 99284; G0378; J0696; J2185; J2405; J7030; J7050; Q9967

== ENCOUNTER 2023-03-06 13:05 | Emergency (ER) | payer MEDICARE ==
[~2023-03-06] VITALS: Ht 160 cm; Wt 49.9 kg
[~2023-03-06 13:05] MED LIST changes: +CIPROFLOXACIN500 MG PO; +DONEPEZIL HCL10 MG PO; +ENTACAPONE200 MG PO; +QUETIAPINE FUMA50 M1 PO
[2023-03-06 14:50] LABS: CLARITY,URINE SL CLOUDY (CLEAR); COLOR,URINE YELLOW (YELLOW); LEUKOCYTE ESTERASE ,URINE SMALL (NEGATIVE); NITRITE,URINE POSITIVE (NEGATIVE); PROTEIN,URINE DIPSTICK 1+ (NEGATIVE)
[2023-03-06 14:51] LABS: KETONES,URINE 1+ (NEGATIVE); URINE UROBILINOGEN 0.2 mg/dL (0.2 - 1)
[2023-03-06 15:00] LABS: BACTERIA,URINE MODERATE /HPF; RBC,URINE 0-5 /HPF (0-5); WBC,URINE (MAN) 21-50 /HPF (0-5)
[2023-03-06 15:01] LABS: MUCUS,URINE FEW (RARE)
[2023-03-06] MEDS ORDERED: CEFDINIR300 MG PO (15:04)
[2023-03-06 15:28] VITALS: O2SAT 95
== END 2023-03-06 15:29 | disposition home or self-care (01) ==
LOC: ER 13:11
DX: T83.031A Leakage of indwelling urethral catheter, initial encounter (principal); N40.1 Benign prostatic hyperplasia with lower urinary tract symptoms; G20 Parkinson's disease; I10 Essential (primary) hypertension; D64.9 Anemia, unspecified
CPT/HCPCS: 36415; 51700; 51702; 81001; 82948; 87086; 87186; 99284

== ENCOUNTER 2024-05-22 15:29 | Inpatient (IN) | payer MEDICARE ==
[2024-05-22 18:15] VITALS: TEMP 98.2
[2024-05-22 18:57] LABS: BASOPHILS % 0.3 % (0.0-1.0); EOSINOPHILS # (AUTO) 0.1 (0.0-0.4); EOSINOPHILS % 0.3 % (0.0-6.0); HEMATOCRIT 35.8 % (38.2-49.6); HEMOGLOBIN 11.5 g/dL (14.0-18.0); LYMPHOCYTES # (AUTO) 1.4 (1.0-3.2); LYMPHOCYTES % 9.2 % (18.0-39.1); MEAN CORPUSCULAR HEMOGLOBIN 29.3 pg (28-32); MEAN CORPUSCULAR HGB CONC 32.1 g/dL (31-35); MEAN CORPUSCULAR VOLUME 91.1 fL (81-99); MONOCYTES % 6.5 % (4.4-11.3); NEUTROPHILS # (AUTO) 12.8 (2.1-6.9); NEUTROPHILS % 83.2 % (38.7-80.0); PLATELET COUNT 179 x10e3/uL (140-360); RED BLOOD COUNT 3.93 x10e6/uL (4.3-5.7); RED CELL DISTRIBUTION WIDTH 14.6 % (11.7-14.4); WHITE BLOOD COUNT 15.32 x10e3/uL (4.8-10.8)
[2024-05-22 19:12] LABS: ALBUMIN 3.4 g/dL (3.5-5.0); ALBUMIN/GLOBULIN RATIO 1.1 (0.8-2.0); ALKALINE PHOSPHATASE 79 IU/L (40-150); ANION GAP 13.3 mmol/L (8-16); BILIRUBIN,TOTAL 0.5 mg/dL (0.2-1.2); BLOOD UREA NITROGEN 21 mg/dL (7-26); BUN/CREATININE RATIO 27 (6-25); CALCIUM 8.7 mg/dL (8.4-10.2); CARBON DIOXIDE 25 mmol/L (22-29); CHLORIDE 100 mmol/L (98-107); CREATININE, SERUM 0.79 mg/dL (0.72-1.25); EST GLOMERULAR FILTRATION RATE 90 ML/MIN (>=60); GLUCOSE 105 mg/dL (74-118); POTASSIUM 4.3 mmol/L (3.5-5.1); SODIUM 134 mmol/L (136-145); TOTAL PROTEIN 6.4 g/dL (6.5-8.1)
[2024-05-22 19:13] LABS: ALANINE AMINOTRANSFERASE < 6 IU/L (0-55)
[2024-05-22] MEDS ORDERED: ONDANSETRON HCL INJ 2MG/ML 2ML 2 MG/ML VIAL IV PRN (19:30)
[2024-05-22 20:35] VITALS: PULSE 65; RESP 16; O2SAT 98
[2024-05-22] MEDS: SODIUM CHLORIDE 0.9% 1000ML 1,000 ML IV ONE (21:24)
[2024-05-22 21:38] VITALS: PULSE 62; RESP 17
[2024-05-22] MEDS ORDERED: SODIUM CHLORIDE 0.9% 250ML 250 ML ONE (22:28)
[2024-05-22] MEDS ORDERED: Vancomycin IV 1 GM VIAL ONE (22:28)
[2024-05-22] MEDS ORDERED: SODIUM CHLORIDE 0.9% 1000ML 1,000 ML ONE (22:42)
[2024-05-22] MEDS: Vancomycin IV 1 GM in SODIUM CHLORIDE 0.9% 250ML 250 ML IV ONE (22:57)
[2024-05-22 23:00] VITALS: BP_SYST 134; BP_SYST 141; BP_DIAS 75; BP_DIAS 82; PULSE 63; PULSE 65; RESP 16; RESP 17; TEMP 97.9; O2SAT 100; O2SAT 95
[2024-05-23] VITALS (7 sets, daily range): BP systolic 117–156; BP diastolic 66–79; PULSE 62–74; RESP 16–20; TEMP 98–99.7; O2SAT 64–100
[2024-05-23] MEDS: SODIUM CHLORIDE 0.9% 1000ML 1,000 ML IV ONE (02:28)
[2024-05-23 05:42] LABS: BASOPHILS % 0.4 % (0.0-1.0); EOSINOPHILS # (AUTO) 0.1 (0.0-0.4); EOSINOPHILS % 0.6 % (0.0-6.0); HEMATOCRIT 34.4 % (38.2-49.6); HEMOGLOBIN 11.4 g/dL (14.0-18.0); LYMPHOCYTES # (AUTO) 1.4 (1.0-3.2); LYMPHOCYTES % 12.9 % (18.0-39.1); MEAN CORPUSCULAR HEMOGLOBIN 29.5 pg (28-32); MEAN CORPUSCULAR HGB CONC 33.1 g/dL (31-35); MEAN CORPUSCULAR VOLUME 88.9 fL (81-99); MONOCYTES # (AUTO) 0.8 (0.2-0.8); MONOCYTES % 7.7 % (4.4-11.3); NEUTROPHILS # (AUTO) 8.2 (2.1-6.9); NEUTROPHILS % 77.9 % (38.7-80.0); PLATELET COUNT 172 x10e3/uL (140-360); RED BLOOD COUNT 3.87 x10e6/uL (4.3-5.7); RED CELL DISTRIBUTION WIDTH 14.5 % (11.7-14.4); WHITE BLOOD COUNT 10.46 x10e3/uL (4.8-10.8)
[2024-05-23 05:58] LABS: ALBUMIN 3.1 g/dL (3.5-5.0); ALBUMIN/GLOBULIN RATIO 1.1 (0.8-2.0); ALKALINE PHOSPHATASE 76 IU/L (40-150); ANION GAP 10.9 mmol/L (8-16); BILIRUBIN,TOTAL 0.8 mg/dL (0.2-1.2); BLOOD UREA NITROGEN 16 mg/dL (7-26); BUN/CREATININE RATIO 23 (6-25); CALCIUM 8.1 mg/dL (8.4-10.2); CARBON DIOXIDE 24 mmol/L (22-29); CHLORIDE 105 mmol/L (98-107); CREATININE, SERUM 0.71 mg/dL (0.72-1.25); EST GLOMERULAR FILTRATION RATE 93 ML/MIN (>=60); GLUCOSE 92 mg/dL (74-118); POTASSIUM 3.9 mmol/L (3.5-5.1); SODIUM 136 mmol/L (136-145)
[2024-05-23 06:03] LABS: ALANINE AMINOTRANSFERASE < 6 IU/L (0-55)
[2024-05-23] MEDS: Vancomycin IV 500 MG in SODIUM CHLORIDE 0.9% 100 ML IV SCH (17:39)
[2024-05-23] MEDS: ENOXAPARIN SOD INJ 40 MG/0.4 ML SYR SC SCH (17:41)
[2024-05-23] MEDS: CARBIDOPA/LEVODOPA 10/100 TAB PO SCH (17:43)
[2024-05-23] MEDS: Entacapone 200 MG PO SCH (17:43)
[2024-05-23] MEDS: ROPINIROLE HCL 1 MG TAB PO SCH (17:44)
[2024-05-23] MEDS: DONEPEZIL HCL 5 MG TAB PO SCH (21:33)
[2024-05-23] MEDS: QUETIAPINE FUMARATE 25 MG TAB PO SCH (21:33)
[2024-05-24] VITALS (7 sets, daily range): BP systolic 94–166; BP diastolic 51–74; PULSE 59–71; RESP 16–18; TEMP 98.4–100.7; O2SAT 99–100
[2024-05-24 05:46] LABS: BASOPHILS % 0.4 % (0.0-1.0); EOSINOPHILS # (AUTO) 0.1 (0.0-0.4); EOSINOPHILS % 0.6 % (0.0-6.0); HEMATOCRIT 36.5 % (38.2-49.6); HEMOGLOBIN 11.7 g/dL (14.0-18.0); LYMPHOCYTES # (AUTO) 1.7 (1.0-3.2); LYMPHOCYTES % 17.1 % (18.0-39.1); MEAN CORPUSCULAR HEMOGLOBIN 29.1 pg (28-32); MEAN CORPUSCULAR HGB CONC 32.1 g/dL (31-35); MEAN CORPUSCULAR VOLUME 90.8 fL (81-99); MONOCYTES # (AUTO) 1.3 (0.2-0.8); MONOCYTES % 13.2 % (4.4-11.3); NEUTROPHILS # (AUTO) 6.6 (2.1-6.9); NEUTROPHILS % 68.2 % (38.7-80.0); PLATELET COUNT 171 x10e3/uL (140-360); RED BLOOD COUNT 4.02 x10e6/uL (4.3-5.7); RED CELL DISTRIBUTION WIDTH 14.5 % (11.7-14.4); WHITE BLOOD COUNT 9.65 x10e3/uL (4.8-10.8)
[2024-05-24 06:03] LABS: ANION GAP 12.5 mmol/L (8-16); CALCIUM 8.5 mg/dL (8.4-10.2); CREATININE, SERUM 0.72 mg/dL (0.72-1.25); POTASSIUM 3.5 mmol/L (3.5-5.1)
[2024-05-24 06:40] LABS: MAGNESIUM 1.9 MG/DL (1.3-2.1); PHOSPHORUS 3.2 MG/DL (2.3-4.7)
[2024-05-24 07:03] LABS: THYROID STIMULATING HORMONE 1.276 uIU/mL (0.350-4.940)
[2024-05-24] MEDS: ACETAMINOPHEN 325 MG TAB PO PRN (17:49)
[2024-05-25] VITALS (8 sets, daily range): BP systolic 105–167; BP diastolic 57–125; PULSE 52–76; RESP 16–19; TEMP 97.9–98.7; O2SAT 97–100
[2024-05-25] MEDS ORDERED: FENTANYL CITRATE/PF 100MCG/2 ML INJ ONE (12:02)
[2024-05-25] MEDS ORDERED: EPHEDRINE SULFATE INJ 50 MG/ML VIAL ONE (17:25)
[2024-05-25] MEDS ORDERED: SEVOFLURANE INHAL SOLN 250 ML PEN BTL ONE (17:25)
[2024-05-25] MEDS ORDERED: ETOMIDATE 2 MG/ML 10 ML INJ IV ONE (17:25)
[2024-05-25] MEDS ORDERED: DEXAMETHASONE SOD PHOS INJ 4 MG/ML SDV ONE (17:25)
[2024-05-25] MEDS ORDERED: ONDANSETRON HCL INJ 2MG/ML 2ML 2 MG/ML VIAL ONE (17:25)
[2024-05-25] MEDS ORDERED: LIDOCAINE HCL 2% LOCAL INJ 5 ML SDV VIAL INJ ONE (17:25)
[2024-05-25] MEDS ORDERED: ACETAMINOPHEN 1000 MG/100 ML IV ONE (17:25)
[2024-05-26 00:28] VITALS: RESP 17
[2024-05-26 06:07] LABS: BASOPHILS % 0.2 % (0.0-1.0); EOSINOPHILS % 0.1 % (0.0-6.0); HEMATOCRIT 37.8 % (38.2-49.6); LYMPHOCYTES # (AUTO) 1.6 (1.0-3.2); LYMPHOCYTES % 16.9 % (18.0-39.1); MEAN CORPUSCULAR HEMOGLOBIN 29.1 pg (28-32); MEAN CORPUSCULAR HGB CONC 31.7 g/dL (31-35); MEAN CORPUSCULAR VOLUME 91.5 fL (81-99); MONOCYTES # (AUTO) 0.7 (0.2-0.8); MONOCYTES % 7.7 % (4.4-11.3); NEUTROPHILS % 74.8 % (38.7-80.0); PLATELET COUNT 211 x10e3/uL (140-360); RED BLOOD COUNT 4.13 x10e6/uL (4.3-5.7); RED CELL DISTRIBUTION WIDTH 14.3 % (11.7-14.4); WHITE BLOOD COUNT 9.37 x10e3/uL (4.8-10.8)
[2024-05-26 06:45] LABS: CALCIUM 8.6 mg/dL (8.4-10.2); CREATININE, SERUM 0.7 mg/dL (0.72-1.25)
[2024-05-26 08:22] VITALS: BP 138/57; PULSE 63; RESP 19; TEMP 98; O2SAT 98
[2024-05-26 12:42] VITALS: BP 127/65; PULSE 60; RESP 19; TEMP 97.7; O2SAT 100
[2024-05-26 14:44] VITALS: BP 164/72; PULSE 66; RESP 19; TEMP 97.9; O2SAT 98
[2024-05-26 17:00] VITALS: BP 179/82; PULSE 65; RESP 19; TEMP 97.7; O2SAT 100
[2024-05-26 20:00] VITALS: BP 144/72; PULSE 60; RESP 18; TEMP 97.5; O2SAT 96
[2024-05-27] VITALS (7 sets, daily range): BP systolic 100–204; BP diastolic 62–84; PULSE 55–69; RESP 17–19; TEMP 97.8–98.2; O2SAT 74–100
[2024-05-27] MEDS: HYDROCODONE/APAP 5MG-325MG TAB PO PRN (17:25)
[2024-05-27] MEDS: MEROPENEM 1 GM in SODIUM CHLORIDE 0.9% 100 ML IV SCH (18:28)
[2024-05-28] VITALS (8 sets, daily range): BP systolic 116–153; BP diastolic 57–79; PULSE 61–77; RESP 16–20; TEMP 98–98.8; O2SAT 97–100
[2024-05-28] MEDS ORDERED: ONDANSETRON HCL 4 MG ORAL DISINTEGRATING TAB PO PRN (13:30)
[2024-05-28] MEDS: ENOXAPARIN 30 MG/0.3 ML SYR SC SCH (17:03)
[2024-05-29] VITALS: BP 132/68; PULSE 66; RESP 18; TEMP 97.5; O2SAT 99
[2024-05-29 04:00] VITALS: BP 153/66; PULSE 76; RESP 18; TEMP 98.5; O2SAT 98
[2024-05-29 08:00] VITALS: BP 118/62; PULSE 75; RESP 16; TEMP 98; O2SAT 99
[2024-05-29 09:19] VITALS: BP 118/62; PULSE 75; RESP 16; TEMP 98; O2SAT 99
[2024-05-29 12:00] VITALS: BP 114/65; PULSE 98; RESP 18; TEMP 97.8; O2SAT 100
== END 2024-05-29 15:56 | disposition home health service (06) | DRG 579 ==
LOC: ER 18:15 → ERHOLD 19:26 → MED/SURG2 22:06
PROVIDERS: ADMIT Internal Medicine; ATTEND Internal Medicine
PROC: 0KBP0ZZ Excision of Left Hip Muscle, Open Approach (ICD-10-PCS; principal; 2024-05-25 12:18)
DX: L89.220 Pressure ulcer of left hip, unstageable (principal); E43 Unspecified severe protein-calorie malnutrition; R64 Cachexia; Z16.12 Extended spectrum beta lactamase (ESBL) resistance; Z68.1 Body mass index [BMI] 19.9 or less, adult; R62.7 Adult failure to thrive; G20.C Parkinsonism, unspecified; F02.80 Dementia in other diseases classified elsewhere, unspecified severity, without behavioral disturbance, psychotic disturbance, mood disturbance, and anxiety; I10 Essential (primary) hypertension; B96.4 Proteus (mirabilis) (morganii) as the cause of diseases classified elsewhere; Z96.0 Presence of urogenital implants
CPT/HCPCS: 36415; 80048; 80053; 80202; 82948; 83036; 83735; 84100; 84443; 85025; 87040; 87071; 87075; 87186; 87205; 94799; 99252; 99284; J1100; J1650; J2001; J2185; J2405; J2543; J3370; J7030; J7050